=== PATIENT | male | born 1975 | race Caucasian/White ===

== ENCOUNTER 2021-03-22 18:38 | Emergency (ER) | payer SELFPAY ==
--- NOTE | 2021-03-22 21:14 | RAD REPORT ---
EXAM DESCRIPTION: RAD - Chest Pa And Lat (2 Views) - 03/22/2021 9:05 pm CLINICAL HISTORY: Chest pain;Cough Chest pain. COMPARISON: CHEST SINGLE VIEW dated 10/27/2010 FINDINGS: Hyperexpanded lung roe are seen with mild interstitial prominence bilaterally likely re presenting a viral infection. The heart is normal in size. No displaced fractures.
[2021-03-22 22:22] LABS: Absolute Lymphocytes (CBC) 0.8 K/uL (0.7-4.9); Basophils % 0.2 % (0-1.3); Lymphocytes % 16.1 % (15.3-44.8); MPV 9.9 fL (7.6-11.3); RBC Red Blood Cell Count 3.88 M/uL (4.33-5.43)
[2021-03-22] MEDS ORDERED: BENZONATATE 100 MG CAP PO ONE (22:22)
[2021-03-22] MEDS ORDERED: IBUPROFEN 200 MG TAB PO ONE (22:22)
[2021-03-22 23:15] LABS: ALT/SGPT 23 U/L (12-78); AST/SGOT 42 U/L (15-37); Albumin 2.5 g/dL (3.4-5.0); Alkaline Phosphatase 64 U/L (45-117); BUN Blood Urea Nitrogen 17 mg/dL (7-18); Bicarbonate 26 mmol/L (21-32); Bilirubin Direct 0.2 mg/dL (0-0.2); Bilirubin Total 0.5 mg/dL (0.2-1.0); Ferritin 712.8 ng/mL (26-388); Glucose Level 214 mg/dL (74-106); Magnesium 2.1 mg/dL (1.8-2.4); NT PRO-BNP 114 pg/mL (<125); Potassium 4.6 mmol/L (3.5-5.1); Protein, Total 6.3 g/dL (6.4-8.2); Sodium Level 133 mmol/L (136-145); Troponin (Emerg Dept Use Only) < 0.02 ng/mL (0.0-0.045)
[2021-03-22 23:21] LABS: Protime INR 0.87
[2021-03-23] MEDS ORDERED: METHYLPREDNISOLONE 40 MG INJ ONE
[2021-03-23] MEDS ORDERED: NA CHLORIDE 0.9% 1,000 ML ONE ×2 (00:01→00:03)
[2021-03-23 01:51] LABS: Potassium 4.6 mmol/L (3.5-5.1)
--- NOTE | 2021-03-23 02:00 | ER ---
Nurse's Notes [facility] Name: Gualberto Burgos Age: 45 yrs Sex: Male : 1975 Arrival Date: 03/22/2021 Time: 18:41 Bed 20 Private MD: Diagnosis: Pneumonia due to SARS-associated coronavirus Presentation: 03/22 18:48 Chief complaint: Patient states: i have been sick for 2 weeks with fever chills. i tw2 tested POSITIVE Saturday night for COVID. i took a test someone brought me. the chest pain got worse as i was coughing and stuff. 18:48 Acuity: MARTINA 3 tw2 18:48 Coronavirus screen: Client presents with at least one sign or symptom that may indicate tw2 coronavirus-19. Standard/surgical mask placed on the client. Provider contacted for isolation considerations. Client reports previous positive COVID test result. Ebola Screen: Patient denies travel to an Ebola-affected area in the 21 days before illness onset. Initial Sepsis Screen: Does the patient meet any 2 criteria? HR > 90 bpm. No. Patient's initial sepsis screen is negative. Does the patient have a suspected source of infection? No. Patient's initial sepsis screen is negative. Risk Assessment: Do you want to hurt yourself or someone else? Patient reports no desire to harm self or others. Onset of symptoms was March 22, 2021. 18:48 Method Of Arrival: Ambulatory tw2 Triage Assessment: 18:48 General: Appears in no apparent distress. Behavior is cooperative, anxious. Pain: tw2 Complains of pain in chest. Historical: - Allergies: 18:50 No Known Allergies; tw2 - Home Meds: 18:50 Novolin 70/30 InnoLet Insulin 100 unit/mL (70-30) Sub-Q inpn [Active]; ivermectin 3 mg tw2 oral tab [Active]; - PMHx: 18:50 Diabetes mellitus; tw2 - PSHx: 20:29 None; df1 - Immunization history:: Adult Immunizations. - Social history:: Smoking status: . Screenin:45 Abuse screen: Denies threats or abuse. Denies injuries from another. Nutritional kc4 screening: No deficits noted. On no prescribed diet Difficulty chewing/swallowing? No. Tuberculosis screening: No symptoms or risk factors identified. Never had TB. Possible symptoms: None Risk factors: None. Fall Risk None identified. No fall in past 12 months (0 pts). No secondary diagnosis (0 pts). No IV (0 pts). Ambulatory Aid- None/Bed Rest/Nurse Assist (0 pts). Gait- Normal/Bed Rest/Wheelchair (0 pts) Mental Status- Oriented to own ability (0 pts). Total Cody Fall Scale indicates No Risk (0-24 pts). Assessment: 22:07 General: Appears in no apparent distress. slender, well groomed, Behavior is calm, kc4 cooperative, appropriate for age, Reports chills for feeling ill for fatigue for >3 days, Denies fever. Pain: Complains of pain in generalized pain Pain currently is 5 out of 10 on a pain scale. at worst was 8 out of 10 on a pain scale. level that patient reports is acceptable is 2 out of 10 on a pain scale. Quality of pain is described as crampy, Pain began 2-3 days ago. Is continuous, Alleviated by medications. Neuro: No deficits noted. Cardiovascular: No deficits noted. Heart tones present Capillary refill < 3 seconds Patient's skin is warm and dry. Pulses are all present. Rhythm is sinus rhythm. Respiratory: No deficits noted. Respiratory: No deficits noted. GI: No deficits noted. No signs and/or symptoms were reported involving the gastrointestinal system. : No deficits noted. No signs and/or symptoms were reported regarding the genitourinary system. EENT: No deficits noted. No signs and/or symptoms were reported regarding the EENT system. Derm: No deficits noted. No signs and/or symptoms reported regarding the dermatologic system. Musculoskeletal: Reports weakness in generalized. Vital Signs: 18:48 BP 121 / 76; Pulse 91; Resp 17; Temp 99.5(TE); Pulse Ox 97% on R/A; Weight 79.38 kg; tw2 Height 6 ft. 0 in. (182.88 cm); Pain 6/10; 21:45 BP 129 / 86; Pulse 72; Resp 18; Temp 98.9(O); Pulse Ox 100% on R/A; Pain 0/10; kc4 22:45 BP 121 / 93; Pulse 60; Resp 20; Temp 98.4(O); Pulse Ox 99% on R/A; Pain 2/10; kc4 23:43 BP 116 / 78; Pulse 64; Resp 20; Temp 98.8(O); Pulse Ox 99% on R/A; Pain 0/10; kc4 03/23 01:22 BP 135 / 76; Pulse 70; Resp 18; Temp 98.9(O); Pulse Ox 97% on R/A; Pain 0/10; kc4 02:15 BP 130 / 77; Pulse 72; Resp 20; Temp 98.8(O); Pulse Ox 98% on R/A; Pain 0/10; kc4 03/22 18:48 Body Mass Index 23.73 (79.38 kg, 182.88 cm) tw2 03/22 21:45 pt calm and comfortable sitting in bed. pt requested for blood sugar to be check. bs [id number] [place] Coma Score: 21:45 Eye Response: spontaneous(4). Verbal Response: oriented(5). Motor Response: obeys kc4 commands(6). Total: 15. ED Course: 18:41 Patient arrived in ED. ds1 18:49 Triage completed. tw2 18:50 Arm band placed on. tw2 18:51 EKG completed in triage. Results shown to MD. tw2 20:29 Francisco Gates PA is PHCP. cp 20:29 Dagoberto Moura MD is Attending Physician. cp 21:05 Chest Pa And Lat (2 Views) XRAY In Process Unspecified. EDMS 21:32 Marcie Wiggins is Primary Nurse. kc4 21:45 Patient has correct armband on for positive identification. Placed in gown. Bed in low kc4 position. Call light in reach. Side rails up X 1. 21:45 No provider procedures requiring assistance completed. Inserted saline lock: 18 gauge kc4 in right antecubital area, using aseptic technique. Blood collected. 21:51 CRP Sent. kc4 21:51 Ferritin Sent. kc4 21:51 D-Dimer Sent. kc4 21:51 Basic Metabolic Panel Sent. kc4 21:51 CBC with Diff Sent. kc4 21:51 LFT's Sent. kc4 21:51 Magnesium Sent. kc4 21:51 NT PRO-BNP Sent. kc4 21:51 PT-INR Sent. kc4 21:51 Troponin (emerg Dept Use Only) Sent. kc4 22:10 EKG done, by ED staff. cs9 03/23 01:21 BMP Sent. kc4 01:59 Brad Perdomo MD is Referral Physician. cp 02:15 IV discontinued, intact, bleeding controlled, No redness/swelling at site. Pressure kc4 dressing applied. Administered Medications: 03/22 22:02 Drug: Ibuprofen 800 mg Route: PO; kc4 22:10 Follow up: Response: No adverse reaction kc4 22:02 Drug: Tessalon Perle (benzonatate) 200 mg Route: PO; kc4 22:10 Follow up: Response: No adverse reaction kc4 23:35 Drug: NS 0.9% 1000 ml Route: IV; Rate: 1 bolus; Site: right antecubital; kc4 03/23 01:21 Follow up: Response: No adverse reaction; IV Status: Completed infusion kc4 03/22 23:35 Drug: SOLU-Medrol (methylPrednisoLONE) 80 mg Route: IVP; Site: right antecubital; kc4 03/23 01:21 Follow up: Response: No adverse reaction kc4 03/22 23:43 Drug: NS 0.9% 1000 ml Route: IV; Rate: 1 bolus; Site: right antecubital; kc4 03/23 01:21 Follow up: Response: No adverse reaction; IV Status: Completed infusion kc4 02:13 Drug: Zithromax (azithromycin) 500 mg Route: PO; kc4 02:16 Follow up: Response: No adverse reaction kc4 02:13 Drug: Aspirin Chewable Tablet 324 mg Route: PO; kc4 02:16 Follow up: Response: No adverse reaction kc4 Outcome: 02:00 Discharge ordered by MD. cp 02:16 Discharged to home ambulatory. kc4 02:16 Condition: stable 02:16 Discharge instructions given to patient, Instructed on discharge instructions, follow up and referral plans. medication usage, Demonstrated understanding of instructions, follow-up care, medications, Prescriptions given X 4. 02:17 Patient left the ED. kc4 Signatures: Dispatcher [employer] EDMS Uma Hamm ds1 Francisco Gates PA PA cp Wise, Tara, CHARISMA RN tw2 Marcie Wiggins kc4 Elisabeth Davis df1 Shae Licea cs9
--- NOTE | 2021-03-23 02:01 | EDPHYS ---
Physician Documentation [facility] Name: Gualberto Burgos Age: 45 yrs Sex: Male : 1975 Arrival Date: 03/22/2021 Time: 18:41 Bed 20 Private MD: ED Physician Dagoberto Mouar HPI: 03/22 20:35 This 45 yrs old Male presents to ER via Ambulatory with complaints of Chest cp Pain, Chills. 20:35 The patient or guardian reports chest pain that is located primarily in the anterior cp chest wall. 20:35 Onset: gradually, and became worse. The pain does not radiate. Associated signs and cp symptoms: Pertinent positives: cough, shortness of breath, Pertinent negatives: diaphoresis, lower extremity pain, lower extremity swelling, palpitations, syncope. The chest pain is described as aching. Patient reports cough, chills, body aches times 2 weeks. Recently tested positive for COVID-19 3 days ago. Historical: - Allergies: 18:50 No Known Allergies; tw2 - Home Meds: 18:50 Novolin 70/30 InnoLet Insulin 100 unit/mL (70-30) Sub-Q inpn [Active]; ivermectin 3 mg tw2 oral tab [Active]; - PMHx: 18:50 Diabetes mellitus; tw2 - PSHx: 20:29 None; df1 - Immunization history:: Adult Immunizations. - Social history:: Smoking status: . ROS: 20:38 Cardiovascular: Positive for chest pain, Negative for edema, palpitations. cp 20:38 Eyes: Negative for injury, pain, redness, and discharge. cp 20:38 Constitutional: Negative for body aches, chills, fever, poor PO intake. 20:38 ENT: Negative for ear pain, sore throat, difficulty swallowing, difficulty handling secretions. 20:38 Respiratory: Negative for cough, shortness of breath, wheezing. 20:38 Abdomen/GI: Negative for abdominal pain, nausea, vomiting, and diarrhea. 20:38 Back: Negative for pain at rest, pain with movement, radiated pain. 20:38 Neuro: Negative for altered mental status, headache, weakness. 20:38 All other systems are negative. Exam: 20:40 Constitutional: The patient appears in no acute distress, alert, awake, cp non-diaphoretic, non-toxic, well developed, well nourished. 20:40 Head/Face: Normocephalic, atraumatic. cp 20:40 Eyes: Periorbital structures: appear normal, Conjunctiva: normal, no exudate, no injection, Sclera: no appreciated abnormality, Lids and lashes: appear normal, bilaterally. 20:40 ENT: External ear(s): are unremarkable, Nose: is normal, Mouth: Lips: moist, Oral mucosa: moist, Posterior pharynx: Airway: no evidence of obstruction, patent. 20:40 Neck: ROM/movement: is normal, is supple, without pain, no range of motions limitations, no nuchal rigidity. 20:40 Chest/axilla: Inspection: normal, Palpation: is normal, no crepitus, no tenderness. 20:40 Cardiovascular: Rate: normal, Rhythm: regular, Edema: is not appreciated, JVD: is not appreciated. 20:40 ECG was reviewed by the Attending Physician. 20:40 Respiratory: the patient does not display signs of respiratory distress, Respirations: normal, no use of accessory muscles, no retractions, labored breathing, is not present, Breath sounds: are clear throughout, no decreased breath sounds, no stridor, no wheezing. 20:40 Abdomen/GI: Inspection: abdomen appears normal, Palpation: abdomen is soft and non-tender, in all quadrants. 20:40 Back: pain, is absent, ROM is normal. 20:40 Neuro: Orientation: to person, place \T\ time. Mentation: is normal, Motor: moves all fours, strength is normal. 22:10 ECG was reviewed by the Attending Physician. cp Vital Signs: 18:48 BP 121 / 76; Pulse 91; Resp 17; Temp 99.5(TE); Pulse Ox 97% on R/A; Weight 79.38 kg; tw2 Height 6 ft. 0 in. (182.88 cm); Pain 6/10; 21:45 BP 129 / 86; Pulse 72; Resp 18; Temp 98.9(O); Pulse Ox 100% on R/A; Pain 0/10; kc4 22:45 BP 121 / 93; Pulse 60; Resp 20; Temp 98.4(O); Pulse Ox 99% on R/A; Pain 2/10; kc4 23:43 BP 116 / 78; Pulse 64; Resp 20; Temp 98.8(O); Pulse Ox 99% on R/A; Pain 0/10; kc4 03/23 01:22 BP 135 / 76; Pulse 70; Resp 18; Temp 98.9(O); Pulse Ox 97% on R/A; Pain 0/10; kc4 02:15 BP 130 / 77; Pulse 72; Resp 20; Temp 98.8(O); Pulse Ox 98% on R/A; Pain 0/10; kc4 03/22 18:48 Body Mass Index 23.73 (79.38 kg, 182.88 cm) tw2 03/22 21:45 pt calm and comfortable sitting in bed. pt requested for blood sugar to be check. bs [id number] [place] Coma Score: 21:45 Eye Response: spontaneous(4). Verbal Response: oriented(5). Motor Response: obeys kc4 commands(6). Total: 15. MDM: 21:22 Patient medically screened. cp 21:30 Differential diagnosis: acute myocardial infarction, acute pericarditis, cp costochondritis, pleurisy, pneumonia, pneumothorax, pulmonary embolus. 03/23 02:00 Data reviewed: vital signs, nurses notes, lab test result(s), EKG, radiologic studies, cp plain films, I have discussed the patient's presentation/case with the attending Emergency Department Physician; and as a result, I will discharge patient. 02:00 The patient was given aspirin in the Emergency Department. Test interpretation: by ED cp physician or midlevel provider: ECG, plain radiologic studies. Counseling: I had a detailed discussion with the patient and/or guardian regarding: the historical points, exam findings, and any diagnostic results supporting the discharge/admit diagnosis, lab results, radiology results, the need for outpatient follow up, a family practitioner, to return to the emergency department if symptoms worsen or persist or if there are any questions or concerns that arise at home. Response to treatment: the patient's symptoms have mildly improved after treatment, and as a result, I will discharge patient. ED course: VSS. Patient reports symptoms improved. Patient appears non-toxic and no signs of respiratory distress. Will discharge to home for continued monitoring. 03/22 20:30 Order name: Basic Metabolic Panel; Complete Time: 23:23 cp 03/22 23:23 Interpretation: Normal except: NA 133; GLUC 214; CRE 1.57; GFR 48; CA 8.2. cp 03/22 20:30 Order name: CBC with Diff; Complete Time: 23:23 cp 03/22 23:24 Interpretation: Normal except: RBC 3.88; HGB 11.6; HCT 34.0; PLT 128; RUSLAN% 76.3. cp 03/22 20:30 Order name: LFT's; Complete Time: 23:23 cp 03/22 23:53 Interpretation: Normal except: AST 42; TP 6.3; ALB 2.5; GLOB 3.8; A/G 0.7. cp 03/22 20:30 Order name: Magnesium; Complete Time: 23:23 cp 03/22 20:30 Order name: NT PRO-BNP; Complete Time: 23:23 cp 03/22 20:30 Order name: PT-INR; Complete Time: 23:23 cp 03/22 20:28 Order name: Chest Pa And Lat (2 Views) XRAY; Complete Time: 21:43 df1 03/22 21:43 Interpretation: Report reviewed. 03/22 20:30 Order name: Troponin (emerg Dept Use Only); Complete Time: 23:23 cp 03/22 20:30 Order name: D-Dimer; Complete Time: 23:23 cp 03/22 20:30 Order name: Ferritin; Complete Time: 23:23 cp 03/22 20:30 Order name: CRP; Complete Time: 23:23 cp 03/22 22:04 Order name: Glucose, Ancillary Testing; Complete Time: 23:23 EDMS 03/23 00:53 Order name: BMP; Complete Time: 01:52 cp 03/23 01:53 Interpretation: Normal except: GLUC 284; BUN 19; CRE 1.66; GFR 45; CA 7.3. cp 03/22 20:30 Order name: EKG; Complete Time: 20:31 cp 03/22 20:30 Order name: Cardiac monitoring; Complete Time: 22:02 cp 03/22 20:30 Order name: EKG - Nurse/Tech; Complete Time: 22:02 cp 03/22 20:30 Order name: IV Saline Lock; Complete Time: 21:51 cp 03/22 20:30 Order name: Labs collected and sent; Complete Time: 21:51 cp 03/22 20:30 Order name: O2 Per Protocol; Complete Time: 21:51 cp 03/22 20:30 Order name: O2 Sat Monitoring; Complete Time: 21:51 cp EC/27 20:40 Rate is 85 beats/min. Rhythm is regular. ME interval is normal. QRS interval is normal. cp QT interval is normal. T waves are Inverted in leads aVL, aVR, V2. Interpreted by me. Reviewed by me. 22:10 Rate is 63 beats/min. Rhythm is regular. ME interval is normal. QRS interval is normal. cp QT interval is normal. T waves are Inverted in lead aVR. Interpreted by me. Reviewed by me. Administered Medications: 22:02 Drug: Ibuprofen 800 mg Route: PO; kc4 22:10 Follow up: Response: No adverse reaction kc4 22:02 Drug: Tessalon Perle (benzonatate) 200 mg Route: PO; kc4 22:10 Follow up: Response: No adverse reaction kc4 23:35 Drug: NS 0.9% 1000 ml Route: IV; Rate: 1 bolus; Site: right antecubital; 4 03/23 01:21 Follow up: Response: No adverse reaction; IV Status: Completed infusion 4 03/22 23:35 Drug: SOLU-Medrol (methylPrednisoLONE) 80 mg Route: IVP; Site: right antecubital; 4 03/23 01:21 Follow up: Response: No adverse reaction 4 03/22 23:43 Drug: NS 0.9% 1000 ml Route: IV; Rate: 1 bolus; Site: right antecubital; 4 03/23 01:21 Follow up: Response: No adverse reaction; IV Status: Completed infusion kc4 02:13 Drug: Zithromax (azithromycin) 500 mg Route: PO; kc4 02:16 Follow up: Response: No adverse reaction kc4 02:13 Drug: Aspirin Chewable Tablet 324 mg Route: PO; kc4 02:16 Follow up: Response: No adverse reaction [facility] Disposition: 06:20 Co-signature as Attending Physician, Dagoberto Moura MD. pkl Disposition Summary: 03/23/21 02:00 Discharge Ordered Location: Home cp Problem: new cp Symptoms: have improved cp Condition: Stable cp Diagnosis - Pneumonia due to SARS-associated coronavirus cp Followup: cp - With: Brad Perdomo MD - When: 2 - 3 days - Reason: Recheck today's complaints Discharge Instructions: - Discharge Summary Sheet cp - Aspirin and Your Heart cp - COVID-19 cp - COVID-19 Frequently Asked Questions cp - 10 Things You Can Do to Manage Your COVID-19 Symptoms at Home - [facility] [place] cp Forms: - Medication Reconciliation Form cp - Thank You Letter cp - Antibiotic Education cp - Prescription Opioid Use cp Prescriptions: - albuterol sulfate 90 mcg/actuation Inhalation HFA aerosol inhaler - inhale 1 puff by INHALATION route every 4-6 hours; 1 Inhaler; Refills: 0, cp Product Selection Permitted - Tessalon Perles 100 mg Oral Capsule - take 2 capsule by ORAL route every 8 hours As needed; 30 capsule; Refills: 0, cp Product Selection Permitted - Zithromax Z-Rafat 250 mg Oral Tablet - take 1 tablet by ORAL route as directed for 5 days Day 1 - take two (2) tablets cp one time. Day 2, 3, 4 , 5 take one (1) tablet once daily.; 6 tablet; Refills: 0, Product Selection Permitted - Prednisone 20 mg Oral Tablet - take 2 tablets by ORAL route once daily for 5 days; 10 tablet; Refills: 0, cp Product Selection Permitted Signatures: Dispatcher [employer] EDDagoberto Harrison MD MD pkl Page, Corey, PA PA cp Rosi Graham RN RN tw2 Marcie Wiggins kc4 Elisabeth Davis df1 Corrections: (The following items were deleted from the chart) 01:53 01:53 Normal except: GLUC 284; BUN 19; CRE 1.66; GFR 45. cp cp
[2021-03-23] MEDS ORDERED: AZITHROMYCIN 250 MG TAB ONE (02:29)
[2021-03-23] MEDS ORDERED: ASPIRIN 81 MG CHEWABLE TABLET ONE (02:29)
[2021-03-23 02:33] VITALS: BP 130/77; TEMP 98.8; O2SAT 98
--- NOTE | 2021-03-25 14:26 | EKG ---
Test Date: 2021-03-22 Test Time: 18:45:35 Library Science Professor: BERTA MEASUREMENT RESULTS: Intervals: Rate: 85 IN: 140 QRSD: 88 QT: 358 QTc: 426 [place]: P: 68 IN: 140 QRS: 76 T: 65 INTERPRETIVE STATEMENTS: Normal sinus rhythm Right atrial enlargement Septal infarct, age undetermined Abnormal ECG Compared to ECG 03/20/2013 07:02:53 Atrial abnormality now present Myocardial infarct finding now present Electronically Signed On 03-25-21 14:22:09 CDT by Kian Escamilla
== END 2021-03-23 02:17 | disposition home or self-care (01) ==
LOC: ER 18:38
DX: U07.1 COVID-19 (principal); J12.82 Pneumonia due to coronavirus disease 2019; E11.9 Type 2 diabetes mellitus without complications; Z79.4 Long term (current) use of insulin
CPT/HCPCS: 36415; 71046; 80048; 80076; 82565; 82728; 82947; 83735; 83880; 84484; 85025; 85379; 85610; 86140; 93005; 96361; 96374; 99284

== ENCOUNTER 2022-11-15 18:02 | Inpatient (IN) | payer SELFPAY ==
[2022-11-15] MEDS ORDERED: Ringers Lactate 1,000 ML IV ONE (18:55)
[2022-11-15] MEDS ORDERED: DIPHENHYDRAMINE 50 MG/ML VIAL ONE (18:55)
[2022-11-15] MEDS ORDERED: NA CHLORIDE 0.9% 50 ML ONE (18:55)
[2022-11-15] MEDS ORDERED: METOCLOPRAMIDE 10 MG/2mL INJ ONE (18:55)
--- NOTE | 2022-11-15 19:09 | RAD REPORT ---
EXAM DESCRIPTION: RAD - Chest Single View - 11/15/2022 6:54 pm CLINICAL HISTORY: chills Chest pain. COMPARISON: Chest Pa And Lat (2 Views) dated 03/22/2021; CHEST SINGLE VIEW dated 10/27/2010 FINDINGS: Portable technique limits examination quality. The lungs are grossly clear. The heart is normal in size. No displaced fractures. IMPRESSION: No acute intrathoracic process suspected.
[2022-11-15 19:15] LABS: Specific Gravity 1.019 (1.005-1.030); Urine Bacteria None Seen /HPF (<20); Urine Bilirubin NEGATIVE (Negative); Urine Blood 1+ (Negative); Urine Clarity Clear (Clear); Urine Color Colorless (Yellow); Urine Glucose 4+ (Over) (Negative); Urine Protein 1+ (Negative); Urine RBC <5 /HPF (None Seen); Urine Urobilinogen Normal (Normal); Urine pH 5.5 (5.0-7.0)
[2022-11-15 19:33] LABS: Albumin 3.4 g/dL (3.4-5.0); Bilirubin Total 0.8 mg/dL (0.2-1.0); Potassium 4.6 mEq/L (3.5-5.1); Protein, Total 6.8 g/dL (6.4-8.2)
[2022-11-15 19:39] LABS: Absolute Lymphocytes (CBC) 0.7 K/uL (0.7-4.9); Hematocrit 38.6 % (39.6-49.0); Lymphocytes % 9.5 % (15.3-44.8); MPV 11.3 fL (7.6-11.3); RBC Red Blood Cell Count 4.34 M/uL (4.33-5.43)
[2022-11-15] MEDS ORDERED: NA CHLORIDE 0.9% 100 ML ONE (19:54)
[2022-11-15] MEDS ORDERED: NA CHLORIDE 0.9% 2,000 ML ONE (19:54)
[2022-11-15] MEDS ORDERED: INSULIN -REGULAR HUMAN 50 UNIT/0.5 ML ML ONE (19:54)
--- NOTE | 2022-11-15 20:04 | ER ---
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 Coronavirus screen: Vaccine status: Patient reports being unvaccinated. Ebola Screen: No symptoms or risks identified at this time. Initial Sepsis Screen: Does the patient meet any 2 criteria? No. Patient's initial sepsis screen is negative. Does the patient have a suspected source of infection? No. Patient's initial sepsis screen is negative. Risk Assessment: Do you want to hurt yourself or someone else? Patient reports no desire to harm self or others. Onset of symptoms was November 15, 2022. 18:35 Method Of Arrival: EMS: [facility] 18:35 Acuity: MARTINA 3 ph Triage Assessment: 18:40 General: Appears in no apparent distress. uncomfortable, Behavior is cooperative, ph appropriate for age, anxious. Pain: Denies pain. Neuro: Level of Consciousness is awake, obeys commands, lethargic, Oriented to person, place, time, situation. Cardiovascular: Capillary refill < 3 seconds in bilateral fingers Patient's skin is warm and dry. Respiratory: Airway is patent Respiratory pattern is tachypnea. GI: Reports nausea, vomiting. Derm: Skin is pink, warm \T\ dry. Historical: - Allergies: 18:38 No Known Allergies; ph - Home Meds: 18:38 ivermectin 3 mg Oral tab [Active]; Novolin 70/30 InnoLet Insulin 100 unit/mL (70-30) ph Sub-Q inpn [Active]; - PMHx: 18:38 diabetes mellitus; ph - Immunization history:: Adult Immunizations unknown. - Social history:: Smoking status: Patient reports the use of cigarette tobacco products, denies chronic smoking, but will smoke occasionally, Patient uses street drugs, marijuana. - Family history:: not pertinent. Screenin:41 [facility] ED Fall Risk Assessment (Adult) History of falling in the last 3 months, ph including since admission No falls in past 3 months (0 pts) Confusion or Disorientation No (0 pts) Intoxicated or Sedated No (0 pts) Impaired Gait No (0 pts) Mobility Assist Device Used No (0 pt) Altered Elimination No (0 pt) Score/Fall Risk Level 0 - 2 = Low Risk Oriented to surroundings, Maintained a safe environment. Abuse screen: Denies threats or abuse. Denies injuries from another. Nutritional screening: No deficits noted. Tuberculosis screening: No symptoms or risk factors identified. Assessment: 18:41 Reassessment: See triage assessment. GI: Pt is actively vomiting undigested food. ld1 19:50 Reassessment: Patient and/or family updated on plan of care and expected duration. Pain kl level reassessed. Patient states feeling better. Patient states symptoms have improved. Vital Signs: 18:35 BP 157 / 104; Pulse 69; Resp 26; Temp 99; Pulse Ox 100% on R/A; Weight 83.91 kg; Height ph 6 ft. 0 in. ; 18:41 BP 149 / 99; Pulse 52; Resp 18; Pulse Ox 99% on R/A; ld1 21:57 BP 155 / 83; Pulse 82; Resp 20; Pulse Ox 99% on R/A; kl 22:40 BP 134 / 81; Pulse 61; Resp 22; Pulse Ox 98% on R/A; kl 18:35 Body Mass Index 25.09 (83.91 kg, 182.88 cm) ph ED Course: 18:16 Patient arrived in ED. ss 18:21 Wil Sharif MD is Attending Physician. rt 18:28 Griselda Ibarra, CHARISMA is Primary Nurse. ph 18:38 Triage completed. ph 18:40 Arm band placed on Patient placed in an exam room, on a stretcher. ph 18:41 Patient has correct armband on for positive identification. Bed in low position. Call ph light in reach. Side rails up X2. Client placed on continuous cardiac and pulse oximetry monitoring. NIBP monitoring applied. Door closed. Noise minimized. Warm blanket given. 18:41 Maintain EMS IV. Dressing intact. Good blood return noted. Site clean \T\ dry. Gauge \T\ ld 1 site: 18G LAC. 18:56 Chest Single View XRAY In Process Unspecified. EDMS 19:26 Primary Nurse role handed off by Griselda Ibarra RN rv1 19:45 Sagar Felton, CHARISMA is Primary Nurse. rv 20:03 Jacob Tan MD is Hospitalizing Provider. rt 22:40 No provider procedures requiring assistance completed. Patient admitted, IV remains in kl place. Administered Medications: 09:49 Drug: metoCLOPramide IVP 10 mg Route: IVP; Site: left antecubital; kl 21:56 Follow up: Response: No adverse reaction kl 19:38 CANCELLED (Other Intervention Used): Lactated Ringers Solution IV 2000 ml IV at ml [id number] 19:45 Drug: Insulin Drip - (Insulin Regular Human IVP 100 units, NS 0.9% IV 100 ml) kl {Co-Signature: rv (Sagar Felton RN).} {Note: initiated at 7 units hr.} Route: IV; Rate: calculated rate; Site: left antecubital; 21:57 Follow up: Response: Blood sugar is lowered kl 19:49 Drug: diphenhydrAMINE IVP 25 mg Route: IVP; Site: left antecubital; kl 21:56 Follow up: Response: No adverse reaction kl 19:54 Drug: NS 0.9% IV 1000 ml Route: IV; Rate: 1000 ml; Site: left antecubital; kl 21:00 Follow up: IV Status: Completed infusion; IV Intake: 1000ml kl 20:24 Drug: Promethazine IVP 12.5 mg Route: IVP; Site: left antecubital; kl 21:55 Follow up: Response: No adverse reaction; Marked relief of symptoms kl 21:15 Drug: NS 0.9% IV 1000 ml Route: IV; Rate: 1000 ml; Site: left antecubital; kl Medication: 18:41 VIS not applicable for this client. ph Intake: 21:00 IV: 1000ml; Total: 1000ml. kl 22:41 IV: 3000ml (IV Fluid); Total: 4000ml. kl Output: 22:41 Urine: 1100ml (Voided); Total: 1100ml. kl Outcome: 20:04 Decision to Hospitalize by Provider. rt 22:41 Admitted to ICU via stretcher, room 3, with chart, Report called to Wil ZAFAR kl 22:41 Condition: improved 23:42 Patient left the ED. kl Signatures: Dispatcher [employer] EDJennifer Barber, RN RN Carmella Mohan, RN RN ss Griselda Ibarra RN RN Sagar Felton RN RN rv Seth, CHARISMA Rouse RN ld1 Wil Sharif MD MD rt Villegas, Rebecca rv1 Arie Linda TEACHER SPECIALIST-[facility]1 Sagar Felton RN rv
--- NOTE | 2022-11-15 20:05 | EDPHYS ---
Physician Documentation [facility] Name: Gualberto Burgos Age: 47 yrs Sex: Male : 1975 Arrival Date: 11/15/2022 Time: 18:02 Bed 8 Private MD: ED Physician Wil Sharif HPI: 11/15 21:48 This 47 yrs old Male presents to ER via EMS with complaints of Heat Exposure. rt 21:48 Patient with history of insulin-dependent diabetes presents to the ED with rt hyperglycemia, nausea, vomiting for the past several days. Reports abdominal pain only when he retches, not otherwise. Is unable to tolerate p.o. Denies other acute complaints at this time. Symptoms are moderate severity, no other aggravating alleviating factors.. Historical: - Allergies: 18:38 No Known Allergies; ph - Home Meds: 18:38 ivermectin 3 mg Oral tab [Active]; Novolin 70/30 InnoLet Insulin 100 unit/mL (70-30) ph Sub-Q inpn [Active]; - PMHx: 18:38 diabetes mellitus; ph - Immunization history:: Adult Immunizations unknown. - Social history:: Smoking status: Patient reports the use of cigarette tobacco products, denies chronic smoking, but will smoke occasionally, Patient uses street drugs, marijuana. - Family history:: not pertinent. ROS: 21:48 Constitutional: Negative for fever, chills, and weight loss, Cardiovascular: Negative rt for chest pain, palpitations, and edema, Respiratory: Negative for shortness of breath, cough, wheezing, and pleuritic chest pain, MS/Extremity: Negative for injury and deformity, Skin: Negative for injury, rash, and discoloration, Neuro: Negative for headache, weakness, numbness, tingling, and seizure, Psych: Negative for depression, anxiety, suicide ideation, homicidal ideation, and hallucinations. 21:48 Abdomen/GI: Positive for nausea and vomiting, Negative for diarrhea. Exam: 21:48 ENT: Dry mucous membranes. rt 21:48 ECG was reviewed by the Attending Physician. Vital Signs: 18:35 BP 157 / 104; Pulse 69; Resp 26; Temp 99; Pulse Ox 100% on R/A; Weight 83.91 kg; Height ph 6 ft. 0 in. ; 18:41 BP 149 / 99; Pulse 52; Resp 18; Pulse Ox 99% on R/A; ld1 21:57 BP 155 / 83; Pulse 82; Resp 20; Pulse Ox 99% on R/A; kl 22:40 BP 134 / 81; Pulse 61; Resp 22; Pulse Ox 98% on R/A; kl 18:35 Body Mass Index 25.09 (83.91 kg, 182.88 cm) ph MDM: 18:21 Patient medically screened. rt 21:48 Differential Diagnosis DKA, gastroparesis, hyperglycemia, acute renal failure. Data rt reviewed: vital signs, nurses notes, lab test result(s), EKG, radiologic studies. Consideration of Admission/Observation Patient was admitted/placed on observation. Management of patient was discussed with the following: Hospitalist: Agrees to admit. I considered the following discharge prescriptions or medication management in the emergency department Medications were administered in the Emergency Department. See MAR. Care significantly affected by the following chronic conditions: Diabetes. Counseling: I had a detailed discussion with the patient and/or guardian regarding: the historical points, exam findings, and any diagnostic results supporting the discharge/admit diagnosis, lab results, radiology results, the need for further work-up and treatment in the hospital. Response to treatment: the patient's symptoms have markedly improved after treatment. 11/15 18:32 Order name: CBC with Diff; Complete Time: 19:42 rt 11/15 18:32 Order name: CMP; Complete Time: 19:36 rt 11/15 18:32 Order name: Lactate w/ 2H reflex if indic.; Complete Time: 20:38 rt 11/15 18:32 Order name: Acetone, Serum; Complete Time: 19:35 rt 11/15 18:32 Order name: ABG: VBG ok; Complete Time: 20:38 rt 11/15 18:32 Order name: UAM; Complete Time: 19:35 rt 11/15 18:32 Order name: CPK; Complete Time: 19:36 rt 11/15 22:42 Order name: Glucose, Ancillary Testing; Complete Time: 22:56 EDMS 11/15 23:41 Order name: Glucose, Ancillary Testing EDMS 11/15 18:32 Order name: Chest Single View XRAY; Complete Time: 19:35 rt 11/15 20:13 Order name: CT Abd/Pelvis - Without Contrast la1 11/15 20:56 Order name: CT; Complete Time: 21:47 EDMS 11/15 18:32 Order name: EKG; Complete Time: 18:34 rt 11/15 18:32 Order name: EKG - Nurse/Tech; Complete Time: 19:31 rt EC:48 Rate is 64 beats/min. Rhythm is regular, Normal Sinus Rhythm with No ectopy. QRS [place] rt is Normal. ID interval is normal. QRS interval is normal. QT interval is normal. No Q waves. T waves are Normal. No ST changes noted. Clinical impression: Normal ECG. Interpreted by me. Administered Medications: 09:49 Drug: metoCLOPramide IVP 10 mg Route: IVP; Site: left antecubital; kl 21:56 Follow up: Response: No adverse reaction kl 19:38 CANCELLED (Other Intervention Used): Lactated Ringers Solution IV 2000 ml IV at ml [id number] 19:45 Drug: Insulin Drip - (Insulin Regular Human IVP 100 units, NS 0.9% IV 100 ml) kl {Co-Signature: rv (Sagar Felton RN).} {Note: initiated at 7 units hr.} Route: IV; Rate: calculated rate; Site: left antecubital; 21:57 Follow up: Response: Blood sugar is lowered kl 19:49 Drug: diphenhydrAMINE IVP 25 mg Route: IVP; Site: left antecubital; kl 21:56 Follow up: Response: No adverse reaction kl 19:54 Drug: NS 0.9% IV 1000 ml Route: IV; Rate: 1000 ml; Site: left antecubital; kl 21:00 Follow up: IV Status: Completed infusion; IV Intake: 1000ml kl 20:24 Drug: Promethazine IVP 12.5 mg Route: IVP; Site: left antecubital; kl 21:55 Follow up: Response: No adverse reaction; Marked relief of symptoms kl 21:15 Drug: NS 0.9% IV 1000 ml Route: IV; Rate: 1000 ml; Site: left antecubital; kl Disposition Summary: 11/15/22 20:04 Hospitalization Ordered Hospitalization Status: Inpatient Admission rt Provider: Jacob Tan rt Location: Intensive Care Unit rt Condition: Fair rt Problem: an acute exacerbation rt Symptoms: have improved rt Bed/Room Type: Standard rt Room Assignment: 3-(11/15/22 22:02) cg Diagnosis - Hyperglycemia, unspecified rt - Acute kidney failure, unspecified rt Forms: - Medication Reconciliation Form rt - SBAR form rt Critical care time excluding procedures: 21:48 Critical care time: Bedside Care: 30 minutes, Consultation: 5 minutes. Total time: 35 rt minutes Signatures: Dispatcher [employer] EDJennifer Barber RN RN Arie Linda, RAILROAD BRAKE REPAIRER-C RAILROAD BRAKE REPAIRER-[facility] Griselda Ibarra RN RN Mouna De Los Santos RN RN Wil Sharif MD MD rt Sagar Felton RN rv Corrections: (The following items were deleted from the chart) 19:38 18:32 Lactated Ringers Solution IV 2000 ml IV at ml bolus ordered. rt la1 19:38 19:38 Lactated Ringers Solution IV 2000 ml IV at ml bolus ordered. la1 la1 22:02 20:04 rt cg
[2022-11-15 20:22] LABS: Arterial Blood Carboxyhemoglob 1.4 % (0-1.5); Blood Gas Oxyhemoglobin 66.9 % (94-97)
[2022-11-15] MEDS ORDERED: PROMETHAZINE INJ 25 MG/ML AMP ONE (20:30)
--- NOTE | 2022-11-15 20:56 | RAD REPORT ---
EXAM DESCRIPTION: CT - Abdomen Pelvis Wo Contrast - 11/15/2022 8:48 pm CLINICAL HISTORY: Abdominal pain. acute renal failure, intractable vomiting COMPARISON: No comparisons TECHNIQUE: CT imaging of the abdomen and pelvis was performed without contrast. Solid organ, bowel a nd vascular assessment is limited due to lack of IV and oral contrast. All CT scans are performed using dose optimization technique as appropriate and may include automated exposure control or mA/KV adjustment according to patient size. FINDINGS: The lower lung roe are clear. The liver, spleen, pancreas, adrenal glands and kidneys are within normal limits for a limited non-co ntrast examination. No bowel obstruction, free air, free fluid or abscess. Moderate stool throughout the colon. The appen chaim is not identified as a discrete structure, however, no secondary findings of appendicitis are levi ntified. The osseous structures are within normal limits.Mild lumbosacral degenerative changes. IMPRESSION: No acute intra-abdominal or pelvic findings. Moderate retained stool throughout the colo n. A limited non-contrast examination was performed as detailed.
--- NOTE | 2022-11-15 21:52 | P.HP ---
Certification for Inpatient Patient admitted to: Inpatient With expected LOS: >2 Midnights Patient will require the following post-hospital care: None Practitioner: I am a practitioner with admitting privileges, knowledge of patient current condition, hospital course, and medical plan of care. Services: Services provided to patient in accordance with Admission requirements found in Title 42 Section 412.3 of the Code of Federal Regulations Patient History Date of Service: 11/15/22 Reason for admission: JONAS History of Present Illness: 47-year-old male with history of insulin-dependent diabetes presents to the emergency department with chief complaint of nausea, vomiting, weakness, hyperglycemia. 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 He continues to work out in the hot sun, he reports he does take his insulin 20 units of 70/30 insulin twice daily. He is unsure when his last A1c was not on any other medications that he reports. He was evaluated in the emergency department his labs are significant for sodium 123 chloride 90 creatinine 3.06 GFR 25 glucose 770 lactic acid 1.5 CPK 314 small serum ketones present 1+ ketones in urine ABG shows a pH of 7.41 CT abdomen pelvis was performed which was negative for acute findings. He received 2 L normal saline bolus as well as insulin drip which was initiated in the emergency department for significant hyperglycemia. He will be admitted for further management of acute kidney injury, hyperglycemia. 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 moist/pink, EOMI, Sclerae nonicteric Neck: Supple, 2+ carotid pulse no bruit, No LAD, Without JVD or thyroid abnormality Respiratory: Clear to auscultation bilaterally, Normal air movement Cardiovascular: No edema, Regular rate/rhythm, Normal S1 S2 Capillary refill: <2 Seconds Gastrointestinal: Normal bowel sounds, No tenderness Musculoskeletal: No tenderness Integumentary: No rashes Neurological: Normal speech, Normal strength at 5/5 x4 extr, Normal tone, Normal affect - Studies Laboratory Data (last 24 hrs) 11/15/22 19:00: Sodium 123 L, Potassium 4.6, BUN 46 H, Creatinine 3.06 H, Glucose 770 H*, Total Bilirubin 0.8, AST 19, ALT 23, Alkaline Phosphatase 106 11/15/22 19:00: WBC 7.30, Hgb 13.0 L, Hct 38.6 L, Plt Count 158 Assessment and Plan - Plan Assessment: Acute renal failure Diabetes mellitus type 2insulin-dependent with hyperglycemia Intractable nausea/vomiting Plan: Acute renal failure Likely prerenal, continue IV fluids, obtain renal ultrasound and nephrology consult. Diabetes mellitus type 2insulin-dependent with hyperglycemia Glucose markedly elevated, not currently acidotic small serum ketones and 1+ urine ketones noted. Continue insulin drip until blood sugar is better controlled, can likely transition off later this evening. A1c ordered. Patient reports being compliant with his home regimen. Intractable nausea/vomiting N.p.o., IVF. CT negative for acute findings. Advance diet as tolerated. DVT PPX: Heparin subcu Code status: Full Discharge Plan: Home Plan to discharge in: 48 Hours - Advance Directives Does patient have a Living Will: No Does patient have a Durable POA for Healthcare: No - Code Status/Comfort Care Code Status Assessed: Yes (Full code) Critical Care: No Time Spent Managing Pts Care (In Minutes): 55
[2022-11-15] MEDS ORDERED: D50W 25 GM/50 ML SYRINGE IV PRN (22:38)
[2022-11-15] MEDS ORDERED: INSULIN -REGULAR HUMAN 100 UNIT in NA CHLORIDE 0.9% 100 ML IV SCH (22:38)
[2022-11-15] MEDS ORDERED: GLUCAGON 1 MG/VIAL IM PRN (22:38)
[2022-11-15] MEDS ORDERED: ACETAMINOPHEN 500 MG TAB PO PRN (22:38)
[2022-11-15] MEDS ORDERED: ONDANSETRON 4 MG/2 ML VIAL IV PRN (22:38)
[2022-11-15] MEDS ORDERED: PROMETHAZINE INJ 25 MG/ML AMP IV PRN (22:38)
[2022-11-15] MEDS ORDERED: D10W 125 ML IV PRN (22:59)
[2022-11-15] MEDS ORDERED: NA CHLORIDE 0.9% 1,000 ML ONE (23:16)
[2022-11-15] MEDS: HEPARIN 5000 UNIT/ML 1 ML VIAL SQ SCH (23:36)
[2022-11-15] MEDS: NA CHLORIDE 0.9% 1,000 ML IV SCH (23:37)
[2022-11-16 00:49] LABS: Potassium 3.7 mEq/L (3.5-5.1)
[2022-11-16] MEDS ORDERED: D50W 25 GM/50 ML SYRINGE IV PRN (01:00)
[2022-11-16] MEDS: INSULIN 70/30 100 UNITS/ML SQ SCH ×3 (03:03→16:54)
[2022-11-16] MEDS: NA CHLORIDE 0.9% 1,000 ML IV SCH (05:01)
[2022-11-16 05:18] LABS: Absolute Lymphocytes (CBC) 1.2 K/uL (0.7-4.9); Hematocrit 34.5 % (39.6-49.0); Lymphocytes % 12.6 % (15.3-44.8); MCV 88.8 fL (80-100); MPV 10.5 fL (7.6-11.3); RBC Red Blood Cell Count 3.88 M/uL (4.33-5.43)
[2022-11-16 05:39] LABS: Potassium 4.7 mEq/L (3.5-5.1)
[2022-11-16 05:42] LABS: Magnesium 2.4 mg/dL (1.6-2.4); Phosphorus 2.7 mg/dL (2.5-4.9); Thyroid Stimulating Hormone 1.35 uIU/mL (0.358-3.740)
[2022-11-16 06:11] LABS: Urine Bacteria None Seen /HPF (<20); Urine Bilirubin NEGATIVE (Negative); Urine Blood 1+ (Negative); Urine Clarity Clear (Clear); Urine Color Light-Yellow (Yellow); Urine Glucose 4+ (Over) (Negative); Urine Mucus Slight /HPF (None Seen); Urine Protein 2+ (Negative); Urine RBC <5 /HPF (None Seen); Urine Urobilinogen Normal (Normal); Urine pH 5.5 (5.0-7.0)
[2022-11-16] MEDS ORDERED: INSULIN -REGULAR HUMAN 50 UNIT/0.5 ML ML SQ SCH (07:30)
--- NOTE | 2022-11-16 07:30 | RAD REPORT ---
EXAM DESCRIPTION: US - Renal Ultrasound-Complete - 11/15/2022 11:58 pm CLINICAL HISTORY: ARF COMPARISON: Abdomen Pelvis Wo Contrast dated 11/15/2022 TECHNIQUE: Sonographic grayscale and color flow images of the kidneys and bladder were obtained. FINDINGS: Both kidneys are normal in size, shape and echotexture. Bilateral renal cortical hyperechogenicity. The right kidney measures 10.6 cm in length. No hydronephrosis, focal mass or perinephric fluid. The left kidney measures 10.7 cm in length. No hydronephrosis, focal mass or perinephric fluid. No echogenic calculi. The urinary bladder is incompletely distended without gross abnormality seen. IMPRESSION: Bilateral renal cortical hyperechogenicity, suggesting medical renal disease. No other a cute findings.
[2022-11-16 08:27] VITALS: O2SAT 96
[2022-11-16] MEDS: HEPARIN 5000 UNIT/ML 1 ML VIAL SQ SCH ×2 (08:42→20:50)
[2022-11-16] MEDS ORDERED: NA CHLORIDE 0.9% 1,000 ML IV SCH (10:49)
--- NOTE | 2022-11-16 10:57 | P.CNS ---
Date of Consult: 11/16/22 Reason for Consult: JONAS Requesting Physician: Arie Linda Chief Complaint: JONAS, hyperglycemia History of Present Illness: 47-year-old male with history of insulin-dependent diabetes for 10-15 years without mention of complication presented to the emergency department nausea, vomiting, weakness, hyperglycemia. 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 His labs were notable on admission for acute kidney injury, hyperglycemia. Pt is feeling better now, he denies abd pain or N/V. 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 - Social History Smoking Status: Current some day smoker Alcohol use: No CD- Drugs: No Caffeine use: Yes Place of Residence: Home Review of Systems General: Weakness Eyes: Unremarkable ENT: Unremarkable Respiratory: Unremarkable Cardiovascular: Unremarkable Gastrointestinal: Unremarkable Genitourinary: Unremarkable Musculoskeletal: Unremarkable Integumentary: Unremarkable Neurological: Unremarkable Physical Examination Temp Pulse Resp BP Pulse Ox 97.3 F 71 17 144/75 H 99 11/16/22 00:00 11/16/22 06:00 11/16/22 04:00 11/16/22 06:00 11/16/22 06:00 General: Alert, In no apparent distress, Oriented x3 HEENT: Atraumatic, Normocephalic Neck: Supple Respiratory: Clear to auscultation bilaterally, Normal air movement Cardiovascular: No edema, Regular rate/rhythm, Normal S1 S2 Gastrointestinal: Soft and benign, Non-distended, Other (Midline surgical scar) Musculoskeletal: No swelling, No tenderness Integumentary: No rashes, No tenderness/swelling Neurological: Normal speech, Normal tone, Sensation intact, Normal affect Laboratory Data (last 24 hrs) 11/15/22 19:00: Sodium 123 L, Potassium 4.6, BUN 46 H, Creatinine 3.06 H, Glucose 770 H*, Total Bilirubin 0.8, AST 19, ALT 23, Alkaline Phosphatase 106 11/15/22 19:00: WBC 7.30, Hgb 13.0 L, Hct 38.6 L, Plt Count 158 Conclusions/Impression: A/P) 1. Stage II JONAS on possible underlying CKD NOS as historic labs have shown Cr level > ULN and renal u/s showed kidneys with some increased echogenicity in the setting of DM for > 10 years. 2. JONAS 2nd to pre-renal azotemia, vol depletion -resolving with IVF hydration, cont IVF for another 12-24h 3. Hypovolemic hyponatremia with initial Na corrected for glucose > 130, but ok to switch to hypotonic fluids for on going maintenance for 12-24h as corrected Na level now 141 4. Type II DM with hyperglycemia, possible mild DKA on admission -management and adjustment of Insulin regimen by primary team 5. UA reviewed on admission, other than glucosuria, mostly bland. Will check spot urine study as OP. Lio Reddy MD, CINTHYA
[2022-11-16] MEDS: INSULIN -REGULAR HUMAN 50 UNIT/0.5 ML ML SQ SCH ×3 (11:30→20:50)
[2022-11-16] MEDS: NACHLORIDE 0.45% 1,000 ML IV SCH (11:59)
--- NOTE | 2022-11-16 12:22 | P.PN ---
Subjective Date of Service: 11/16/22 Chief Complaint: JONAS, hyperglycemia No acute events since admission. He reports improvement in his generalized weakness. He states that his nausea and vomiting have also improved. He denies any chest pain, palpitations, or shortness of breath. Review of Systems 10-point ROS is otherwise unremarkable General: Weakness (generalized) Physical Examination - Vital Signs Temperature: 99.2 F Blood Pressure: 134/76 Pulse: 79 Respirations: 17 Pulse Ox (%): 98 - Physical Exam General: Alert, In no apparent distress, Oriented x3 HEENT: Atraumatic, Mucous membr. moist/pink, Sclerae nonicteric Neck: JVD not distended Respiratory: Clear to auscultation bilaterally, Normal air movement Cardiovascular: No edema, Regular rate/rhythm, Normal S1 S2, No gallops, No rubs, No murmurs Gastrointestinal: Normal bowel sounds, Soft and benign, Non-distended, No tenderness, No rebound, No guarding Musculoskeletal: No clubbing Integumentary: No rashes Neurological: Normal speech, Normal affect - Studies Laboratory Data (last 24 hrs) 11/15/22 19:00: Sodium 123 L, Potassium 4.6, BUN 46 H, Creatinine 3.06 H, Glucose 770 H*, Total Bilirubin 0.8, AST 19, ALT 23, Alkaline Phosphatase 106 11/15/22 19:00: WBC 7.30, Hgb 13.0 L, Hct 38.6 L, Plt Count 158 Assessment And Plan - Plan # Acute Kidney Injury on suspected Chronic Kidney Disease Stage III - likely Pre-Renal - Nephrology consulted and spoke with Dr. Reddy - recommendations appreciated - Creatinine = 3.06 -> 2.13 -> 1.94 (creatinine in February 2021 ~1.6) - Urinalysis = 4+ glucosuria, trace ketones, 2+ protein - Renal ultrasound = "bilateral renal cortical hyperechogenicity, suggesting medical renal disease. No other acute findings." - IV fluids per Nephrology - Monitor creatinine and urine output - Renally dose medications # Hyperglycemia in Type II Diabetes Mellitus - Hgb A1c = 9.9 % - Glucose improved on insulin drip - Plan to transition off of insulin drip to NPH 70/30 insulin - Extensive counseling provided - He was advised on the importance of continued outpatient PCP follow-up - He was advised to schedule annual dilated eye exams and urine microalbumin screen, as well as monthly foot exams at home - Food Service Associate consulted for assistance with diabetic diet education # Suspect Undiagnosed Hypertension - Blood pressure is fluctuating, but was as high as 179/87 - Chest x-ray = "no acute intrathoracic process suspected." - Initially planned to start low-dose amlodipine, but spoke with Dr. Reddy and he advised to hold off on treatment at this time # Hyponatremia suspect secondary to Hyperglycemia - Glucose on presentation was 123, but when corrected for the initial glucose of 770, the corrected sodium is between to 134-139. Jacob Tan M.D.
[2022-11-16] MEDS ORDERED: AMLODIPINE 2.5 MG TAB PO SCH (13:00)
--- NOTE | 2022-11-16 16:29 | EKG ---
Test Date: 2022-11-15 Test Time: 19:08:11 Foundry Technician: OVI MEASUREMENT RESULTS: Intervals: Rate: 64 [place]: 140 QRSD: 100 QT: 390 QTc: 402 [place]: P: 59 [place]: 140 QRS: 49 T: 67 INTERPRETIVE STATEMENTS: Normal sinus rhythm Normal ECG Compared to ECG 03/22/2021 22:07:30 No significant changes Electronically Signed On 11-16-22 16:27:31 CDT by Reese Morales
[2022-11-17] MEDS: NACHLORIDE 0.45% 1,000 ML IV SCH (00:16)
[2022-11-17 05:02] LABS: Absolute Lymphocytes (CBC) 1.8 K/uL (0.7-4.9); Hematocrit 34.8 % (39.6-49.0); Lymphocytes % 27.1 % (15.3-44.8); MCV 89.6 fL (80-100); MPV 10.6 fL (7.6-11.3); RBC Red Blood Cell Count 3.88 M/uL (4.33-5.43)
[2022-11-17 05:17] LABS: Magnesium 2.1 mg/dL (1.6-2.4); Phosphorus 1.8 mg/dL (2.5-4.9); Potassium 5.2 mEq/L (3.5-5.1)
[2022-11-17 06:34] VITALS: BMI 20.6
[2022-11-17] MEDS: INSULIN -REGULAR HUMAN 50 UNIT/0.5 ML ML SQ SCH ×2 (08:12→11:52)
[2022-11-17] MEDS: INSULIN 70/30 100 UNITS/ML SQ SCH (08:16)
[2022-11-17] MEDS: HEPARIN 5000 UNIT/ML 1 ML VIAL SQ SCH (08:19)
[2022-11-17] MEDS ORDERED: ALPRAZOLAM 0.25 MG TABLET PO ONE (08:42)
[2022-11-17] MEDS ORDERED: SODIUM PHOSPHATE 10 MM in NA CHLORIDE 0.9% 250 ML IV ONE (10:00)
[2022-11-17 10:12] VITALS: TEMP 97.2
[2022-11-17] MEDS ORDERED: NICOTINE 14 MG/PAT TD SCH (10:51)
[2022-11-17 13:53] VITALS: BP 155/90
--- NOTE | 2022-11-17 14:49 | P.DS ---
Admission Date: 11/15/22 Discharge Date: 11/17/22 Disposition: ROUTINE DISCHARGE Reason for Admission: JONAS, hyperglycemia Consultations: 1. Nephrology Hospital Course: DIAGNOSES: # KDIGO Stage II Acute Kidney Injury on suspected Chronic Kidney Disease Stage III - likely Pre-Renal # Hyperglycemia in Type II Diabetes Mellitus complicated by Diabetic Neuropathy # Nausea/Vomiting suspect due to Diabetic Gastroparesis # Hyponatremia suspect secondary to Hyperglycemia HOSPITAL COURSE: Mr. Gualberto Burgos is a 47 year old male with a past medical history significant for type II diabetes mellitus who was admitted to the [facility] on 11/15/2022 for nausea, vomiting, weakness, and hyperglycemia. He was admitted to the Medicine service. Upon further evaluation, he was found to have a glucose of 770 and a creatinine of 3.06. He was treated with IV fluids and an insulin drip. Over the course of his hospitalization, his glucose levels and creatinine improved significantly. He stated that he felt significantly better and would like to be discharged today to attend his grandson's birthday republican tomorrow. He was counseled extensively on the importance of medication compliance. He was advised to take insulin Novolin 70/30, 15 units SQ BID. He was educated on how to administer his insulin as well as how to measure his blood glucose. He demonstrated the ability to perform these tasks. He was advised to check his blood glucose levels four times per day and to maintain a journal. He will establish care with a PCP soon for further medication adjustments. I spoke with Dr. Copeland, who has agreed to see him in clinic and assist with arranging a PCP follow-up. On 11/17/2022, he was seen on rounds and deemed medically stable for discharge. He was discharged with instructions to schedule follow-up appointments with his PCP and with Nephrology (Dr. Copeland). He was provided a prescription for insulin Novolin 70/30. He and his family members were given the opportunity to ask questions and reported no further questions. Furthermore, all questions were answered to the best of my ability. A copy of this discharge summary will be sent to the above providers to facilitate continuity of care. Today, I personally spent 35 minutes on his case, of which greater than 50% of the time was spent in patient education, counseling, and coordination of care as described above. - Physical Exam General: Alert, In no apparent distress, Oriented x3 HEENT: Atraumatic, Mucous membr. moist/pink, Sclerae nonicteric Neck: JVD not distended Respiratory: Clear to auscultation bilaterally, Normal air movement Cardiovascular: No edema, Regular rate/rhythm, No murmurs Gastrointestinal: Normal bowel sounds, Soft, Non-distended, No tenderness Musculoskeletal: No clubbing Integumentary: No rashes Neurological: Normal speech, Normal affect Vital Signs/Physical Exam: Temp Pulse Resp BP Pulse Ox 97.2 F 56 16 155/90 H 97 11/17/22 08:00 11/17/22 10:50 11/17/22 04:00 11/17/22 10:50 11/17/22 10:50 Laboratory Data at Discharge: WBC 6.70 thou/uL (4.3-10.9) 11/17/22 04:36 Hgb 11.9 g/dL (13.6-17.9) L 11/17/22 04:36 Hct 34.8 % (39.6-49.0) L 11/17/22 04:36 Plt Count 143 thou/uL (152-406) L 11/17/22 04:36 Sodium 136 mEq/L (136-145) 11/17/22 04:36 Potassium 4.5 mEq/L (3.5-5.1) D 11/17/22 07:26 BUN 19 mg/dL (7-18) H 11/17/22 04:36 Creatinine 1.27 mg/dL (0.70-1.30) 11/17/22 04:36 Glucose 281 mg/dL (74-106) H 11/17/22 04:36 Phosphorus 1.8 mg/dL (2.5-4.9) L 11/17/22 04:36 Magnesium 2.1 mg/dL (1.6-2.4) 11/17/22 04:36 Total Bilirubin 0.8 mg/dL (0.2-1.0) 11/15/22 19:00 AST 19 U/L (15-37) 11/15/22 19:00 ALT 23 U/L (16-61) 11/15/22 19:00 Alkaline Phosphatase 106 U/L (45-117) 11/15/22 19:00 Triglycerides 153 mg/dL (<150) H 11/16/22 05:01 Cholesterol 185 mg/dL (<200) 11/16/22 05:01 HDL Cholesterol 35 mg/dL (40-60) L 11/16/22 05:01 Cholesterol/HDL Ratio 5.29 11/16/22 05:01 Home Medications: Insulin 70/30 NPH/Reg Human [Novolin 70/30*] 15 unit SQ BID #10 ml 11/17/22 New Medications: Insulin 70/30 NPH/Reg Human [Novolin 70/30*] 15 unit SQ BID #10 ml Physician Discharge Instructions: 1. Please call and schedule a follow-up appointment with your PCP in 3-5 days - As we discussed, your blood work shows a mild anemia - please discuss having a full anemia workup (including colonoscopy) with your PCP - As we discussed, please check your blood sugar level four times per day (once before each meal, and once before bedtime) - Please make sure to schedule yearly dilated eye exams and urine microalbumin screens - Please make sure to check your feet at least once per month for ulcers - Please make sure to monitor your sugar and carb intake in your diet - Please consider getting a gastric (stomach) emptying study to evaluate for gastroparesis 2. Please call and schedule a follow-up appointment with Nephrology (Dr. Copeland) in 3-5 days If you have any questions regarding your hospital stay, please call [phone] Diet: ADA Activity: Ad elo Followup: Haroon Copeland DO [ACTIVE - CAN ADMIT] - Time spent managing pt's care (in minutes): 35
[2022-11-17] MEDS ORDERED: INSULIN 70/30 100 UNITS/ML SQ SCH (18:00)
--- NOTE | 2022-11-17 21:40 | P.PN ---
Date of Service: 11/17/22 Vital Signs Temp Pulse Resp BP Pulse Ox 97.2 F 56 16 155/90 H 97 11/17/22 08:00 11/17/22 10:50 11/17/22 04:00 11/17/22 10:50 11/17/22 10:50 Assessment/ Plan: Nephrology No dyspnea No chest pain Anxiety +BM +UO No acute events overnight Vitals, medications, blood work and imaging reviewed in the chart. NAD. NCAT. MMM. Neck supple. Normal respiratory effort. RRR. Abd ND. No C/C. LE Edema none. No rash. AAO. Normal speech. CKD II with Proteinuria -No NSAIDs HTN with CKD, variable -Monitor BP DM II with Hyperglycemia & CKD -RISS Anemia in chronic illness -Monitor H&H Case reviewed with Dr. Tan
== END 2022-11-17 15:35 | disposition home or self-care (01) | DRG 74 ==
LOC: ER 18:02 → ERHOLD 20:14 → 3RD-ICU 22:04
PROVIDERS: ADMIT Internal Medicine; ATTEND Internal Medicine
DX: E11.43 Type 2 diabetes mellitus with diabetic autonomic (poly)neuropathy (principal); E87.1 Hypo-osmolality and hyponatremia; N17.9 Acute kidney failure, unspecified; K31.84 Gastroparesis; E11.65 Type 2 diabetes mellitus with hyperglycemia; E11.22 Type 2 diabetes mellitus with diabetic chronic kidney disease; E11.40 Type 2 diabetes mellitus with diabetic neuropathy, unspecified; D63.1 Anemia in chronic kidney disease; N18.30 Chronic kidney disease, stage 3 unspecified; E86.1 Hypovolemia; F17.210 Nicotine dependence, cigarettes, uncomplicated; Z79.4 Long term (current) use of insulin; Z90.49 Acquired absence of other specified parts of digestive tract
CPT/HCPCS: 36415; 36600; 71045; 74176; 76770; 80048; 80053; 80061; 81001; 82010; 82550; 82805; 82947; 83036; 83605; 83735; 84100; 84132; 84439; 84443; 85025; 93005; 96361; 96374; 96375; 99285; J1200; J1644; J1815; J2405; J2550; J2765; J7030; J7050; J7120

== ENCOUNTER 2023-10-26 07:36 | Observation (INO) | payer SELFPAY ==
--- OUTSIDE RECORDS SUMMARY | 2023-10-26 07:41 | XMS REPORT | Continuity of Care Document ---
Author Name Unknown Address [address] [facility] [address] [place] [address] [facility] Address [address] [facility] [address] [place] [address] Care Team Providers Care Powertrain Engineer Name Role Phone PCP, PATIENT DOES NOT HAVE A Primary Care Physic katrina Unavailable RAHSAD SALAZAR Attending Clinician Unavailable Rashad Zamora Attending Clinician [phone] RASHAD SALAZAR Admitting Clinician Unavailable Allergies, Adverse Reactions, Alerts Allergy Name Allergy Type Status Severity Reaction(s) Onset Date Inactive Date Treating Clinician Comments Source NO KNOWN ALLERGIE S Drug Class Active [facility] Social History Social Habit Start Date Stop Date Quantity Comments Source Sexual orientation U [facility] Sex Assigned At 1975 00:00:00 1975 00:00:00 [facility] Smoking Status Start Date Stop Date Source Tobacco smoking consumption unknown [facility] Medications Ordered Medication Name Filled Medication Name Start Date Stop Date Current Medication? Ordering Clinician Indication Dosage Frequency Signature (SIG) Comments Components Source Novolin 70/30 U-100 Insulin 100 unit/mL subcutaneou s suspension 10-23 00:00: 00 Yes unit/mL (70-30) Jett F Isaac lisinopril 40 mg tablet 2023-0 10-23 00:00: 00 Yes 1mg Jett F Isaac lisinopril 40 mg tablet 2023-0 - 00:00: 00 Yes 1mg Jett F Isaac TAKE 1 TABLET DAILY. 07-22 00:00: 00 Yes 40 Jett Gray ibuprofen (IBU) tablet 600 mg 2022-05 17:00: 00 05-13 17:09 :00 No 600mg 600 mg, Oral, ONCE, 1 dose, On Sat05/13/23 at 1100, [facility] HYDROcodone -acetaminop hen (NORCO 5) 5-325 mg tablet 1 tablet 2022-05 17:00: 00 05-13 17:09 :00 No 1{tbl} 1 tablet, Oral, ONCE, 1 dose, On Sat05/13/23 at 1100, [facility] ibuprofen 600 mg tablet 2022-05 00:00: 00 Yes [id number] 600mg Take 1 tablet by mouth every 6 (six) hours as needed for Pain (scale 1-3). [facility] traMADoL 50 mg tablet 2022-05 00:00: 00 05-13 00:00 :00 No [id number] 50mg Take 1 tablet by mouth every 6 (six) hours as needed for Pain (scale 4-6) for up to 7 days. Indication s: acute pain [facility] INJECT 20 UNITS BID 2022-05 00:00: 00 09-05 00:00 :00 No [id number] Jett Gray TAKE 1 TABLET DAILY. 2022-05 00:00: 00 09-05 00:00 :00 No 40 Jett Gray TAKE 1 TABLET TWICE DAILY. 2022-05 00:00: 00 09-05 00:00 :00 No 1000 Jett Gray TAKE 1 TABLET DAILY. 2022-05 00:00: 00 09-05 00:00 :00 No 20 Jett Gray TAKE 1 TABLET DAILY. 2022-05 00:00: 00 09-05 00:00 :00 No 20 Jett Gray TAKE 1 TABLET TWICE A DAY NEEDED 2022-05 00:00: 00 09-05 00:00 :00 No 500 Jett Gray Novolin 70/30 U-100 Insulin 100 unit/mL subcutaneou s suspension 11-17 00:00: 00 Yes unit/mL (70-30) Jett Gray glipizide 10 mg tablet 11-30 00:00: 00 Yes 1mg Jett Gray metformin 1,000 mg tablet 11-30 00:00: 00 Yes 1mg Jett Gray lovastatin 10 mg tablet 11-29 00:00: 00 Yes 1mg Jett Gray lisinopril 10 mg tablet 11-29 00:00: 00 Yes 1mg Jett Gray Lantus 100 unit/mL subcutaneou s solution 2014-05 00:00: 00 Yes 12unit/ mL Jett Gray metformin 1,000 mg tablet 2014-05 00:00: 00 Yes 1mg Jett Gray glimepiride 4 mg tablet 2014-05 00:00: 00 Yes 1mg Jett Gray Immunizations Ordered Immunization Name Filled Immunization Name Date Status Comments Source TDAP Unknown Completed [facility] Vital Signs Vital Name Observation Time Observation Value Comments S ource Systolic blood pressure 2023-05-13 16:56:00 130 mm[Hg] [facility] Diastolic blood pressure 2023-05-13 16:56:00 88 mm[Hg] [facility] Heart rate 2023-05-13 16:56:00 99 /min [facility] Body temperature 2023-05-13 16:56:00 36.61 Lorenza [facility] Respiratory rate 2023-05-13 16:56:00 18 /min [facility] Body height 2023-05-13 16:56:00 182.9 cm [facility] Body weight 2023-05-13 16:56:00 84.823 kg [facility] BMI 2023-05-13 16:56:00 25.36 kg/m2 [facility] Oxygen saturation in Arterial blood by Pulse oximetry 2023-05-13 16:56:00 100 /min [facility] Body Temperature 2023-10-24 11:13:00 98.40 degrees Jett F Isaac Heart Rate 2023-10-24 11:13:00 64.00 /min Sofya en F Isaac Respiratory Rate 2023-10-24 11:13:00 17.00 /min Jett F Isaac BP Systolic 2023-10-24 11:13:00 119 mm[Hg] Step hen F Isaac BP Diastolic 2023-10-24 11:13:00 79 mm[Hg] Cristhian phen F Isaac Weight Measured 2023-10-24 11:13:00 171.20 pounds Jett F Isaac Height Measured 2023-10-24 11:13:00 72.00 inches Jett F Isaac Weight Measured 2023-07-22 16:17:00 176.80 pounds Jett F Isaac Height Measured 2023-07-22 16:17:00 72.00 inches Jett F Isaac Body Temperature 2023-07-22 16:17:00 98.30 degrees Jett F Isaac Heart Rate 2023-07-22 16:17:00 60.00 /min Sofya en F Isaac Respiratory Rate 2023-07-22 16:17:00 16.00 /min Jett F Isaac BP Systolic 2023-07-22 16:17:00 163 mm[Hg] Step hen F Isaac BP Diastolic 2023-07-22 16:17:00 98 mm[Hg] Cristhian phen F Isaac BP Systolic 2023-04-05 13:37:00 138 mm[Hg] Step hen F Isaac BP Diastolic 2023-04-05 13:37:00 88 mm[Hg] Cristhian phen F Isaac Weight Measured 2023-04-05 13:37:00 181.80 pounds Jett F Isaac Height Measured 2023-04-05 13:37:00 72.00 inches Jett F Isaac Body Temperature 2023-04-05 13:37:00 98.40 degrees Jett F Isaac Heart Rate 2023-04-05 13:37:00 56.00 /min Sofya en F Isaac Respiratory Rate 2023-04-05 13:37:00 16.00 /min Jett F Isaac BP Systolic 2023-04-05 13:35:00 138 mm[Hg] Step hen F Isaac BP Diastolic 2023-04-05 13:35:00 88 mm[Hg] Cristhian phen F Isaac Weight Measured 2023-04-05 13:35:00 181.80 pounds Jett F Isaac Height Measured 2023-04-05 13:35:00 72.00 inches Jett F Isaac Body Temperature 2023-04-05 13:35:00 98.40 degrees Jett F Isaac Heart Rate 2023-04-05 13:35:00 56.00 /min Sofya en F Isaac Respiratory Rate 2023-04-05 13:35:00 16.00 /min Jett F Isaac BP Systolic 2023-03-22 13:23:00 161 mm[Hg] Step hen F Isaac BP Diastolic 2023-03-22 13:23:00 95 mm[Hg] Cristhian phen F Isaac Weight Measured 2023-03-22 13:23:00 181.60 pounds Jett F Isaac Height Measured 2023-03-22 13:23:00 72.00 inches Jett F Isaac Body Temperature 2023-03-22 13:23:00 98.40 degrees Jett F Isaac Heart Rate 2023-03-22 13:23:00 70.00 /min Sofya en F Isaac Respiratory Rate 2023-03-22 13:23:00 Jett F Isaac BP Systolic 2016-11-29 10:10:00 134 mm[Hg] Step hen F Isaac BP Diastolic 2016-11-29 10:10:00 86 mm[Hg] Cristhian phen F Isaac Weight Measured 2016-11-29 10:10:00 156.40 pounds Jett F Isaac Height Measured 2016-11-29 10:10:00 72.00 inches Jett F Isaac Body Temperature 2016-11-29 10:10:00 98.10 degrees Jett F Isaac Heart Rate 2016-11-29 10:10:00 61.00 /min Sofya en F Isaac Respiratory Rate 2016-11-29 10:10:00 18.00 /min Jett F Isaac BP Systolic 2015-05-18 09:03:00 134 mm[Hg] Step hen F Isaac BP Diastolic 2015-05-18 09:03:00 84 mm[Hg] Cristhian phen F Isaac Weight Measured 2015-05-18 09:03:00 152.20 pounds Jett F Isaac Height Measured 2015-05-18 09:03:00 72.00 inches Jett F Isaac Body Temperature 2015-05-18 09:03:00 97.80 degrees Jett F Isaac Heart Rate 2015-05-18 09:03:00 82.00 /min Sofya en F Isaac Respiratory Rate 2015-05-18 09:03:00 17.00 /min Jett F Isaac BP Systolic 2015-05-12 10:49:00 115 mm[Hg] Step hen F Isaac BP Diastolic 2015-05-12 10:49:00 78 mm[Hg] Cristhian phen F Isaac Weight Measured 2015-05-12 10:49:00 148.00 pounds Jett F Isaac Height Measured 2015-05-12 10:49:00 72.00 inches Jett F Isaac Body Temperature 2015-05-12 10:49:00 97.70 degrees Jett F Isaac Heart Rate 2015-05-12 10:49:00 75.00 /min Sofya en F Isaac Respiratory Rate 2015-05-12 10:49:00 18.00 /min Jett F Isaac BP Systolic 2015-05-12 10:36:00 115 mm[Hg] Step hen F Isaac BP Diastolic 2015-05-12 10:36:00 78 mm[Hg] Cristhian phen F Isaac Weight Measured 2015-05-12 10:36:00 148.00 pounds Jett F Isaac Height Measured 2015-05-12 10:36:00 72.00 inches Jett F Isaac Body Temperature 2015-05-12 10:36:00 97.70 degrees Jett F Isaac Heart Rate 2015-05-12 10:36:00 75.00 /min Sofya en F Isaac Respiratory Rate 2015-05-12 10:36:00 18.00 /min Jett F Isaac Procedures Procedure Date / Time Performed Performing Clinician Source NM APPLICATION SHORT ARM SPLINT FOREARM-HAND STATIC 2023-05-13 18:22:11 Rashad Salazar [facility] XR ELBOW <3 VW LEFT 2023-05-13 17:29:47 Bety Salzaar [facility] XR FOREARM 2 VW LEFT 2023-05-13 17:29:47 Sejal Salazar [facility] XR HAND <3 VW LEFT 2023-05-13 17:29:47 Rashad Salazar [facility] XR HUMERUS 2 VW LEFT 2023-05-13 17:29:47 Sejal Salazar [facility] NOTICE OF PRIVACY PRACTICES 2023-05-13 16:48:34 Doctor Unassigned, [place] [facility] CONSENT/REFUSAL FOR DIAGNOSIS AND TREATMENT 2023-05-13 16:47:55 Doctor Unassigned, [place] [facility] Encounters Start Date/Time End Date/Time Encounter Type Admission Type Attending [facility] Facility Care Department Encounter ID Source 2023-10-24 11:10:34 2023-10-24 11:10:34 Outpatient SFA [id number] Jett Gray 2023-10-24 00:00:00 2023-10-24 00:00:00 Outpatient Visit [id number] Jett Gray 2023-07-22 16:05:51 2023-07-22 16:05:51 Outpatient SFA [id number] Jett Gray 2023-05-13 10:58:00 2023-05-13 12:39:00 Emergency X RASHAD SALAZAR [facility] ERT [id number] [facility] 2023-05-13 10:58:00 2023-05-13 12:39:00 Emergency Rashad Salazar [facility] [id number] [facility] 2023-04-05 13:23:33 2023-04-05 13:23:33 Outpatient [facility] [id number] Jett Gray Results Test Description Test Time Test Comments Results Result Co mments Source Jett GrayLIPID [id number] 00:00:00* Test Item Value Reference Range Interpretation Comme nts CHOLESTEROL (test code = 2210) 180 MG/DL TRIGLYCERIDES (test code = 2232) 145 MG/DL HDL CHOLESTEROL (test code = 2220) 40 MG/DL CALC LDL CHOL (test code = 2237) 114 MG/DL RISK RATIO LDL/HDL (test cod e = 2238) 2.85 RATIO Jett GrayHEMOGLOBIN [id number] 00:00:00* Test Item Value Reference Range Interpretation Comme nts HEMOGLOBIN A1c (test code = 10472) 10.8 % Jett GrayHEMOGLOBIN [id number] 03:12:04* Test Item Value Reference Range Interpretation [facility]me [facility] HEMOGLOBIN A1c (test code = 87312) 9.3 % 4.2-5.6 H [employer] GUIDELINES FOR HGB A1C: PREDIABETES/INCREASED RISK . . . . . . . 5.7-6.4% DIAGNOSIS OF DIABETES . . . . . . . . . >=6.5% WITH CONFIRMATION OR APPROPRIATE SYMPTOMS NOTE: ASSAY MAY BE AFFECTED BY HEMOGLOBINOPATHIES (SICKLE CELL ANEMIA, S-C DISEASE, OTHERS) OR ARTIFICIALLY LOWERED BY DECREASED RED CELL SURVIVAL (HEMOLYTIC ANEMIAS, BLOOD LOSS, ETC.). CONSIDER ALTERNATE TESTING OR LABORATORY CONSULTATION. UNLESS OTHERWISE INDICATED, ALL TESTING PERFORMED AT [facility] [address] [place] [address] TAPE FOLDING MACHINE OPERATOR: TROY JACOME M.D. [place] NUMBER [id number] [facility] [place]. [id number] HEMOGLOBIN [id number] 00:00:00* Test Item Value Reference Range Interpretation Comme [facility] HEMOGLOBIN A1c (test code = 94254) 9.3 % Jett GrayCOMPREHENSIVE METABOLIC [id number] 03:51:09* Test Item Value Reference Range Interpretation Comme nts GLUCOSE (test code = 2217) 219 MG/DL 70-99 H BUN (test code = 2208) 13 MG/DL 6-20 CREATININE (test code = 2214) 1.28 MG/DL 0.80-1.40 eGFR (2020 CKD-EPI) (test co de = 30235) 70 ML/MIN/1.73 >60 CALC BUN/CREAT (test code = 2235) 10 RATIO 6-28 SODIUM (test code = 2231) 137 MEQ/L 133-146 POTASSIUM (test code = 2228) 5.2 MEQ/L 3.5-5.4 CHLORIDE (test code = 2215) 100 MEQ/L 95-107 CARBON DIOXIDE (test code = 2206) 29 MEQ/L 19-31 CALCIUM (test code = 2209) 9.4 MG/DL 8.5-10.5 PROTEIN, TOTAL (test code = 2229) 6.3 G/DL 6.1-8.3 ALBUMIN (test code = 2201) 4.1 G/DL 3.5-5.2 CALC GLOBULIN (test code = 2240) 2.2 G/DL 1.9-3.7 CALC A/G RATIO (test code = 2234) 1.9 RATIO 1.0-2.6 BILIRUBIN, TOTAL (test code = 2207) 0.4 MG/DL <=1.2 ALKALINE PHOSPHATASE (test code = 2204) 82 U/L 40-118 AST (test code = 2218) 18 U/L 9-50 ALT (test code = 2219) 13 U/L 5-50 LIPID [id number] 03:51:09* Test Item Value Reference Range Interpretation Comme nts CHOLESTEROL (test code = 2210) 189 MG/DL <200 TRIGLYCERIDES (test code = 2232) 173 MG/DL <150 H HDL CHOLESTEROL (test code = 2220) 35 MG/DL >39 L CALC LDL CHOL (test code = 2237) 125 MG/DL <100 H NOTE: CALCULATED LDL IS BASED ON ABNER-DIAZ METHOD WHICHINCLUDES ADJUSTABLE TRIGLYCERIDE:VLDL CHOLESTEROL RATIO.THIS FACTOR VARIES BY MEASURED TRIGLYCERIDE AND NON-HDLCHOLESTEROL CONCENTRATIONS WITH INCREASED CALCULATED LDL SEENIN HIGHER TRIGLYCERIDE OR LOWER NON-HDL SPECIMENS. FOR MOREINFORMATION, SEE CLIENT ANNOUNCEMENT AT [email or web address] RISK RATIO LDL/HDL (test code = 2238) 3.57 RATIO <3.55 H UNLESS OTHERW ISE INDICATED, ALL TESTING PERFORMED AT [facility] [address] [place] [address] TAPE FOLDING MACHINE OPERATOR: TROY JACOME M.D. [place] NUMBER [id number] [facility] [place]. [id number] COMPREHENSIVE METABOLIC [id number] 00:00:00* Test Item Value Reference Range Interpretation Comme nts GLUCOSE (test code = 2217) 219 MG/DL BUN (test code = 2208) 13 MG/DL CREATININE (test code = 2214) 1.28 MG/DL eGFR (2020 CKD-EPI) (test co de = 84109) 70 ML/MIN/1.73 CALC BUN/CREAT (test code = 2235) 10 RATIO SODIUM (test code = 2231) 137 MEQ/L POTASSIUM (test code = 2228) 5.2 MEQ/L CHLORIDE (test code = 2215) 100 MEQ/L CARBON DIOXIDE (test code = 2206) 29 MEQ/L CALCIUM (test code = 2209) 9.4 MG/DL PROTEIN, TOTAL (test code = 2229) 6.3 G/DL ALBUMIN (test code = 2201) 4.1 G/DL CALC GLOBULIN (test code = 2240) 2.2 G/DL CALC A/G RATIO (test code = 2234) 1.9 RATIO BILIRUBIN, TOTAL (test code = 2207) 0.4 MG/DL ALKALINE PHOSPHATASE (test code = 2204) 82 U/L AST (test code = 2218) 18 U/L ALT (test code = 2219) 13 U/L Jett GrayLIPID [id number] 00:00:00* Test Item Value Reference Range Interpretation Comme nts CHOLESTEROL (test code = 2210) 189 MG/DL TRIGLYCERIDES (test code = 2232) 173 MG/DL HDL CHOLESTEROL (test code = 2220) 35 MG/DL CALC LDL CHOL (test code = 2237) 125 MG/DL RISK RATIO LDL/HDL (test cod e = 223) 3.57 RATIO Jett GrayHEMOGLOBIN [id number] 00:00:00* Test Item Value Reference Range Interpretation Comme [facility] HEMOGLOBIN A1c (test code = 77534) 10.7 % Jett GrayCOMPREHENSIVE METABOLIC [id number] 00:00:00* Test Item Value Reference Range Interpretation Comme nts GLUCOSE (test code = 2217) 335 MG/DL BUN (test code = 2208) 12 MG/DL CREATININE (test code = 2214) 0.81 MG/DL eGFR AMER. (test cod e = 97729) 129 ML/MIN/1.73 eGFR NON- AMER. (test code = 50663) 111 ML/MIN/1.73 CALC BUN/CREAT (test code = 2235) 15 RATIO SODIUM (test code = 2231) 137 MEQ/L POTASSIUM (test code = 2228) 5.0 MEQ/L CHLORIDE (test code = 2215) 98 MEQ/L CARBON DIOXIDE (test code = 2206) 28 MEQ/L CALCIUM (test code = 2209) 9.6 MG/DL PROTEIN, TOTAL (test code = 2229) 6.5 G/DL ALBUMIN (test code = 2201) 4.3 G/DL CALC GLOBULIN (test code = 2240) 2.2 G/DL CALC A/G RATIO (test code = 2234) 2.0 RATIO BILIRUBIN, TOTAL (test code = 2207) 0.4 MG/DL ALKALINE PHOSPHATASE (test code = 2204) 80 U/L AST (test code = 2218) 20 U/L ALT (test code = 2219) 21 U/L Jett GrayLIPID [id number] 00:00:00* Test Item Value Reference Range Interpretation Comme nts CHOLESTEROL (test code = 2210) 164 MG/DL TRIGLYCERIDES (test code = 2232) 83 MG/DL HDL CHOLESTEROL (test code = 2220) 67 MG/DL CALC LDL CHOL (test code = 2237) 80 MG/DL RISK RATIO LDL/HDL (test cod e = 2238) 1.20 RATIO Jett GrayGC, AMPLIFIED, [id number] 00:00:00* Test Item Value Reference Range Interpretation Comme nts GONORRHEA, AMPLIFIED (test c ode = 28346) NEGATIVE Jett GrayCHLAMYDIA, AMPLIFIED, [id number] 00:00:00* Test Item Value Reference Range Interpretation Comme nts CHLAMYDIA, AMPLIFIED (test c ode = 19496) NEGATIVE Jett GrayCOMPREHENSIVE METABOLIC [id number] 00:00:00* Test Item Value Reference Range Interpretation Comme nts GLUCOSE (test code = 2217) 237 MG/DL BUN (test code = 2208) 16 MG/DL CREATININE (test code = 2214) 0.91 MG/DL eGFR AMER. (test cod e = 15040) 123 ML/MIN/1.73 eGFR NON- AMER. (test code = 37311) 107 ML/MIN/1.73 CALCULATED BUN/CREAT (test code = 2235) 18 RATIO SODIUM (test code = 2231) 135 MEQ/L POTASSIUM (test code = 2228) 4.6 MEQ/L CHLORIDE (test code = 2215) 96 MEQ/L CARBON DIOXIDE (test code = 2206) 28 MEQ/L CALCIUM (test code = 2209) 9.4 MG/DL PROTEIN, TOTAL (test code = 2229) 6.6 G/DL ALBUMIN (test code = 2201) 3.9 G/DL CALCULATED GLOBULIN (test code = 2240) 2.7 G/DL CALCULATED A/G RATIO (test code = 2234) 1.4 RATIO BILIRUBIN, TOTAL (test code = 2207) 0.5 MG/DL ALKALINE PHOSPHATASE (test code = 2204) 98 U/L SGOT (AST) (test code = 2218) 59 U/L SGPT (ALT) (test code = 2219) 109 U/L Jett GrayLIPID [id number] 00:00:00* Test Item Value Reference Range Interpretation Comme nts CHOLESTEROL (test code = 2210) 204 MG/DL TRIGLYCERIDES (test code = 2232) 167 MG/DL HDL CHOLESTEROL (test code = 2220) 70 MG/DL CALCULATED LDL CHOL (test co de = 2237) 101 MG/DL RISK RATIO LDL/HDL (test cod e = 2238) 1.44 RATIO Jett GrayCBC W/AUTO [id number] 00:00:00* Test Item Value Reference Range Interpretation Comme nts WBC (test code = 1001) 5.4 K/UL RBC (test code = 1002) 5.13 M/UL HEMOGLOBIN (test code = 1003) 15.2 G/DL HEMATOCRIT (test code = 1004) 46.0 % MCV (test code = 1005) 89.7 fL MCH (test code = 1006) 29.6 PG MCHC (test code = 1007) 33.0 G/DL RDW (test code = 1038) 13.7 % NEUTROPHILS (test code = 1008) 56 % LYMPHOCYTES (test code = 1010) 34 % MONOCYTES (test code = 1011) 9 % EOSINOPHILS (test code = 1012) 1 % BASOPHILS (test code = 1013) 1 % PLATELET COUNT (test code = 1015) 231 K/UL Jett GrayHEMOGLOBIN [id number] 00:00:00* Test Item Value Reference Range Interpretation Comme [facility] HEMOGLOBIN A1c (test code = 98172) 13.6 % Jett GrayTHYROID II PROFILE (T3U, T4, T7, TSH)2015-05-13 00:00:00* Test Item Value Reference Range Interpretation Comme nts T3 UPTAKE (test code = 2817) 29.3 % T4 (THYROXINE) (test code = 2819) 9.3 UG/DL CALCULATED T7 (FTI) (test co de = 2820) 2.72 TSH (test code = 2821) 1.5 UIU/ML Jett GrayHIV AB/AG COMBO RFLX [id number] 00:00:00* Test Item Value Reference Range Interpretation Comme nts HIV AB/AG COMBO RFLX CONF (t est code = 3514) NON-REACTIVE Jett [id number] 00:00:00* Test Item Value Reference Range Interpretation Comme nts RPR RESULT (test code = 3501) NON-REACTIVE RPR TITER (test code = 3500) NOT INDIC. TITER Jett GrayACUTE HEPATITIS [id number] 00:00:00* Test Item Value Reference Range Interpretation Comme nts HEPATITIS A IgM (test code = 72641) NON-REACTIVE HEPATITIS B CORE IgM (test c ode = 4644) NON-REACTIVE HEPATITIS B SURF AG (test co de = 2739) NON-REACTIVE HEPATITIS C ANTIBODY (test c ode = 4675) NON-REACTIVE INTERPRETATION HEPATITIS A: (test code = 2552) (NOTE) INTERPRETATION HEPATITIS B: (test code = 05891) (NOTE) INTERPRETATION HEPATITIS C: (test code = 48545) (NOTE) Jett Gray Notes Date/Time Note Provider Source 2023-10-24 00:00:00 [id number] T00:00:00+ + +| Plan Activity | Plan Date |+ =========+ +| CBC | 2015-07-07 || CMP | || A1C | || TSH | || Lipids | || Follow up in one year for follow up | || Results will be called to You and addressed | |+ ---------+ +| STD Panel | 2015-07-07 || UA - GC | || Avoid Sexual Contact for 21 days | || Use of Condoms or Abstinence for protection against HIV and STDs | || Recommend follow up in clinic in 14 days for assessment for regimen | |+ ---------+ +| Hepatitis Panel | 2015-07-07 || Referral for Abdominal Ultrasound | || Cessation of Smoking | || Cessation of Drinking | || Cessation of Liver intoxicating drugs | || Follow up in one week for assessment of reports and managment | || Avoid NSAIDs | |+ ---------+ +| Restart med | 2015-07-07 || Increase Exercise to 3-5 times a week for at least 45 minutes | || High Fiber Low Calorie Diet | || Reduce Carbohydrates | || Increase Vegetables | |+ ---------+ +| Offered Prescriptive assistance with Smoking cessation | 2016-11-29 || Counseled on smoking Cessation | || Offered Behavioral health for Assistance with smoking cessation | |+ ---------+ +| normal weight and height | 2023-03-22 |+ ---------+ +| smoking cessation | 2023-03-22 || | || discussed tobacco cessation | || consider setting a quit date | || consider medications to help with cravings if needed | || continue to monitor | |+ ---------+ +| Well controlled | 2023-03-22 || rx lisinopril 40 mg po QD | || f/u in 3 months | || Begin checking BP at home and keep log to bring to next clinic visit. | || DASH diet, Sodium reduction <2.4 g/day | || Weight reduction, Exercise 150 mins/wk | || Limit alcohol and caffeine consumption, Smoking cessation | |+ ---------+ +| UA neg for UTI | 2023-03-22 || rx robaxin 500 mg BID prn | || Heat to area x 20 mins 2 or 3 times daily followed by mild stretching | || exercises, Limit bedrest, stay active for reduced pain and better functional | || outcomes | || f/u if no improvement | |+ ---------+ +| RTO for A1C, CMP, Lipid- | 2023-04-05 || Patient with financial issue unable to have stable housing and healthy foods | || due to limited accommodations. | || Continue novolin 70/30 20 unit bid. Just bought a new vial from [employer] | || Continue low fat, low salt, low carbohydrate, high fiber diet- education given. | || Exercise at least 30 minute daily | || Drink at least 6-8 glasses of water daily. Stop drinking at least 2 hours | || before bed. | |+ ---------+ +| Continue healthy diet and exercise | 2023-10-24 |+ ---------+ +| Advised pt to quit smoking. | 2023-10-24 || Discussed resources available when pt is ready to quit smoking. | || Recommend setting quit date. | |+ ---------+ +[id number] of TreatmentLNCARE PLANTXTSFA|[id number] for patient [id number] Section NarrativeNARRATIVEFormatted C-CDA narrative textSFAStangie Hess [facility]2024-05-31T00:00:00 Jett Jaky [facility]"
[2023-10-26] MEDS ORDERED: ONDANSETRON 4 MG/2 ML VIAL ONE (08:03)
[2023-10-26] MEDS ORDERED: NA CHLORIDE 0.9% 1,000 ML ONE (08:03)
[2023-10-26 08:13] LABS: Absolute Eosinophils 0.1 K/uL (0-0.5); Absolute Lymphocytes (CBC) 1.3 K/uL (0.7-4.9); Absolute Monocytes 0.6 K/uL (0.1-1.3); Absolute Neutrophil 7.3 K/uL (1.8-8.0); Basophils % 0.4 % (0-1.3); Eosinophils % 0.9 % (0-4.4); Hematocrit 39.9 % (39.6-49.0); Hemoglobin 13.5 g/dL (13.6-17.9); Lymphocytes % 13.9 % (15.3-44.8); MCH 30.6 pg (27.0-35.0); MCHC 33.8 g/dL (32.0-36.0); MCV 90.5 fL (80-100); Monocytes % 6.1 % (3.3-12.3); Neutrophils % 78.7 % (41.7-73.7); Platelets 255 thou/uL (152-406)
[2023-10-26 08:22] LABS: PT Prothrombin Time 10.4 SECONDS (9.5-12.5); Protime INR 0.94
[2023-10-26] MEDS ORDERED: ALBUTEROL 2.5 MG/3 ML NEB SOL ONE ×2 (08:30→08:47)
--- NOTE | 2023-10-26 08:31 | RAD REPORT ---
EXAM DESCRIPTION: RAD - Chest Single View - 10/26/2023 8:25 am CLINICAL HISTORY: ABDOMINAL DISTENTION COMPARISON: Chest Single View dated 11/15/2022; Chest Pa And Lat (2 Views) dated 03/22/2021; CHEST SI NGLE VIEW dated 10/27/2010 FINDINGS: Lines: None. Lungs: No evidence of edema or pneumonia. Calcified right upper lobe nodules. Pleural: No significant pleural effusions or pneumothorax. Cardiac: The heart size is within normal limits. Mediastinum: Within normal limits. Bones: No acute fractures. Other: None IMPRESSION: No acute cardiopulmonary disease.
[2023-10-26 08:36] LABS: ALT/SGPT 19 U/L (16-61); AST/SGOT 17 U/L (15-37); Albumin 3.4 g/dL (3.4-5.0); Albumin/Globulin Ratio 0.9 (1.1-1.8); Alkaline Phosphatase 84 U/L (45-117); Anion Gap 7.8 mEq/L (5.0-15.0); BUN Blood Urea Nitrogen 31 mg/dL (7-18); Bicarbonate 21 mEq/L (21-32); Bilirubin Direct < 0.2 mg/dL (0-0.2); Bilirubin Indirect, Calculated 0.3 mg/dL (0.2-0.8); Bilirubin Total 0.5 mg/dL (0.2-1.0); Globulin 3.7 g/dL (2.3-3.5); Glomerular Filtration Rate 50 ml/min (=/>90); Glucose Level 135 mg/dL (74-106); Lipase 230 U/L (13-75); Magnesium 2.1 mg/dL (1.6-2.4); NT PRO-BNP 95 pg/mL (<125); Potassium 5.8 mEq/L (3.5-5.1); Protein, Total 7.1 g/dL (6.4-8.2); Sodium Level 137 mEq/L (136-145); Troponin High Sensitivity 36.7 pg/mL (<58.9)
[2023-10-26] MEDS ORDERED: SOD POLYSTYREN SUL 15 GM/60 ML UCUP ONE (08:47)
[2023-10-26] MEDS ORDERED: CALCIUM GLUCONATE 1 GM IVPB 1 GM/50 ML BAG IV ONE (08:48)
--- NOTE | 2023-10-26 08:57 | RAD REPORT ---
EXAM DESCRIPTION: CTStone Protocol - 10/26/2023 8:43 am CLINICAL HISTORY: FLANK PAIN COMPARISON: Abdomen Pelvis Wo Contrast dated 11/15/2022 TECHNIQUE: CT of the abdomen and pelvis was performed without contrast. All CT scans are performed using dose optimization technique as appropriate and may include automated exposure control or mA/KV adjustment according to patient size. FINDINGS: Lower chest: No acute abnormality. Mild circumferential thickened distal esophagus. Liver: Low-density lesion in the posterior right hepatic lobe is unchanged. Biliary: No biliary ductal dilatation. Stomach: No significant focal abnormality. Duodenum: No significant focal abnormality. Pancreas: No significant abnormality. Spleen: No significant abnormality. Adrenal: No suspicious lesions. Kidney/ureter: No hydronephrosis. No renal calculi. Retroperitoneum: No retroperitoneal adenopathy. Vascular: No aneurysm. Atherosclerosis . Bowel: Small bowel fluid noted.. Peritoneum: No ascites or free air. Small fat containing inguinal hernia. Bladder: Circumferential thickening of the bladder which is nonspecific. Reproductive: No adnexal masses. Bones: No acute fracture. Disc height loss at L5-S1. Other: n/a IMPRESSION: No acute intra-abdominal or pelvic finding. Fluid-filled small bowel and proximal colon could reflect a gastroenteritis or malabsorption process.
--- NOTE | 2023-10-26 09:29 | ER ---
Nurse's Notes [facility] Name: Gualberto Burgos Age: 48 yrs Sex: Male : 1975 Arrival Date: 10/26/2023 Time: 07:36 Bed 7 Private MD: Diagnosis: Other viral enteritis;Acute kidney failure, unspecified-on chronic;Dehydration;Hyperkalemia;Vomiting;Diarrhea, unspecified;Essential (primary) hypertension Presentation: 10/25 08:05 Chief complaint: Patient states: N/V/D that started yesterday, saw PCP on and ph was told that potassium and A1C was high and that he should come to ED, hx of DM, states that he did take insulin this morning, 20 units Novolin 70/30. Coronavirus screen: Vaccine status: Patient reports being unvaccinated. Ebola Screen: No symptoms or risks identified at this time. Initial Sepsis Screen: Does the patient meet any 2 criteria? No. Patient's initial sepsis screen is negative. Does the patient have a suspected source of infection? No. Patient's initial sepsis screen is negative. Risk Assessment: Do you want to hurt yourself or someone else? Patient reports no desire to harm self or others. Onset of symptoms was October 26, 2023. 08:05 Method Of Arrival: Ambulatory ph 08:05 Acuity: MARTINA 3 ph Triage Assessment: 08:08 General: Appears in no apparent distress. uncomfortable, slender, well groomed, ph Behavior is calm, cooperative, appropriate for age. Pain: Complains of pain in abdomen. Neuro: Level of Consciousness is awake, alert, obeys commands, Oriented to person, place, time, situation. Cardiovascular: Capillary refill < 3 seconds in bilateral fingers Patient's skin is warm and dry. Respiratory: Airway is patent Respiratory effort is even, unlabored, Respiratory pattern is regular, symmetrical. GI: Abdomen is non-distended, Reports lower abdominal pain, upper abdominal pain, diarrhea, nausea, vomiting. Derm: Skin is pink, warm \T\ dry. Historical: - Allergies: 08:06 No Known Allergies; ph - Home Meds: 08:06 Novolin 70/30 InnoLet Insulin 100 unit/mL (70-30) Sub-Q inpn [Active]; Lisinopril Oral ph [Active]; - PMHx: 08:06 diabetes mellitus; Hypertensive disorder; ph - PSHx: 08:06 abdominal sx; ph - Immunization history:: Adult Immunizations unknown. - Infectious Disease History:: Denies. - Social history:: Smoking status: Patient reports the use of cigarette tobacco products, denies chronic smoking, but will smoke occasionally, cigars, Patient uses street drugs, marijuana. - Family history:: not pertinent. Screenin:10 [facility] ED Fall Risk Assessment (Adult) History of falling in the last 3 months, ph including since admission No falls in past 3 months (0 pts) Confusion or Disorientation No (0 pts) Intoxicated or Sedated No (0 pts) Impaired Gait No (0 pts) Mobility Assist Device Used No (0 pt) Altered Elimination No (0 pt) Score/Fall Risk Level 0 - 2 = Low Risk Oriented to surroundings, Maintained a safe environment, Hourly rounding (assess needs \T\ fall precautionary measures) done. Abuse screen: Denies threats or abuse. Denies injuries from another. Nutritional screening: No deficits noted. Tuberculosis screening: No symptoms or risk factors identified. Assessment: 08:36 General: SEE TRIAGE ASSESSMENT. ph Vital Signs: 08:05 BP 145 / 98; Pulse 74; Resp 18; Temp 97.5; Pulse Ox 100% on R/A; Weight 78.02 kg; ph Height 6 ft. 0 in. ; 08:37 BP 133 / 106; Pulse 69; Resp 18; Pulse Ox 100% on Nebulizer Mask; ph 09:51 BP 126 / 98; Pulse 84; Resp 18; Pulse Ox 96% on R/A; ph 08:05 Body Mass Index 23.33 (78.02 kg, 182.88 cm) ph ED Course: 07:42 Patient arrived in ED. ra3 07:43 Francisco Ivan MD is Attending Physician. rossy 07:46 Griselda Ibarra, CHARISMA is Primary Nurse. ph 08:06 Triage completed. ph 08:10 Arm band placed on Patient placed in an exam room, on a stretcher, on pulse oximetry. ph 08:11 Patient has correct armband on for positive identification. Bed in low position. Call ph light in reach. Side rails up X2. 08:27 XRAY Chest (1 view) In Process Unspecified. EDMS 08:27 Basic Metabolic Panel Sent. ph 08:27 CBC with Diff Sent. ph 08:27 LFT's Sent. ph 08:27 Magnesium Sent. ph 08:27 NT PRO-BNP Sent. ph 08:27 Troponin HS Sent. ph 08:28 Lipase Sent. ph 08:28 Initial lab(s) drawn, by me, sent to lab. EKG done, by ED staff, reviewed by Francisco Ivan MD. Inserted saline lock: 22 gauge in right forearm, using aseptic technique. Blood collected. 08:45 CT Stone Protocol In Process Unspecified. EDSD 09:27 Brad Perdomo MD is Hospitalizing Provider. rossy 10:00 No provider procedures requiring assistance completed. Patient admitted, IV remains in ph place. Administered Medications: 08:27 Drug: NS 0.9% IV 1000 ml IV at 1 bolus Per protocol; 1000 mL bolus Route: IV; Rate: 1 ph bolus; Site: right forearm; 10:00 Follow up: Response: No adverse reaction; IV Status: Completed infusion; IV Intake: ph 1000ml 08:30 Drug: Albuterol Inhalation 2.5 mg Inhalation once Route: Inhalation; ph 09:00 Follow up: Response: No adverse reaction ph 08:54 Drug: Albuterol Inhalation 2.5 mg Inhalation once Route: Inhalation; ph 09:30 Follow up: Response: No adverse reaction ph 08:54 Drug: Kayexalate PO 30 grams PO once Route: PO; ph 09:30 Follow up: Response: No adverse reaction ph 08:54 Drug: Calcium Gluconate IVPB 1 grams IVPB once over 10 mins; (mix in NS 100 mL) Route: ph IVPB; Infused Over: 10 mins; Site: right forearm; 09:45 Follow up: Response: No adverse reaction; IV Status: Completed infusion ph Medication: 08:10 VIS not applicable for this client. ph Intake: 10:00 IV: 1000ml; Total: 1000ml. ph Outcome: :28 Decision to Hospitalize by Provider. rossy 11:32 Patient left the ED. em1 11:32 Admitted to Med/surg accompanied by tech, via wheelchair, ph 11:32 Condition: stable 11:32 Instructed on the need for admit, Signatures: Dispatcher [employer] EDSD Francisco Ivan MD MD cha Martinez, Eric em1 Griselda Ibarra RN RN ph Kraus, Kaylen ra3
--- NOTE | 2023-10-26 09:29 | EDPHYS ---
Physician Documentation [facility] Name: Gualberto Burgos Age: 48 yrs Sex: Male : 1975 Arrival Date: 10/26/2023 Time: 07:36 Bed 7 Private MD: CY Physician Francisco Ivan HPI: 10/25 09:21 This 48 yrs old Male presents to ER via Ambulatory with complaints of sent by rossy pcp:abnormal labs, Nausea/Vomiting/Diarrhea. 09:21 The patient presents to the emergency department with nausea, vomiting. Onset: The rossy symptoms/episode began/occurred 3 day(s) ago. Possible causes: unknown, bad food exposure, flare up of bowel problem. The symptoms are aggravated by food , The symptoms are alleviated by nothing. Associated signs and symptoms: Pertinent positives: nausea, vomiting. Severity of symptoms: At their worst the symptoms were moderate in the emergency department the symptoms are unchanged. The patient has experienced similar episodes in the past, a few times. Historical: - Allergies: 08:06 No Known Allergies; ph - Home Meds: 08:06 Novolin 70/30 InnoLet Insulin 100 unit/mL (70-30) Sub-Q inpn [Active]; Lisinopril Oral ph [Active]; - PMHx: 08:06 diabetes mellitus; Hypertensive disorder; ph - PSHx: 08:06 abdominal sx; ph - Immunization history:: Adult Immunizations unknown. - Infectious Disease History:: Denies. - Social history:: Smoking status: Patient reports the use of cigarette tobacco products, denies chronic smoking, but will smoke occasionally, cigars, Patient uses street drugs, marijuana. - Family history:: not pertinent. ROS: 09:21 Constitutional: Negative for fever, chills, and weight loss, Eyes: Negative for injury, rossy pain, redness, and discharge, ENT: Negative for injury, pain, and discharge, Neck: Negative for injury, pain, and swelling, Cardiovascular: Negative for chest pain, palpitations, and edema, Respiratory: Negative for shortness of breath, cough, wheezing, and pleuritic chest pain, Back: Negative for injury and pain, : Negative for injury, bleeding, discharge, and swelling, MS/Extremity: Negative for injury and deformity, Skin: Negative for injury, rash, and discoloration, Neuro: Negative for headache, weakness, numbness, tingling, and seizure, Psych: Negative for depression, anxiety, suicide ideation, homicidal ideation, and hallucinations, Allergy/Immunology: Negative for hives, rash, and allergies, Endocrine: Negative for neck swelling, polydipsia, polyuria, polyphagia, and marked weight changes, Hematologic/Lymphatic: Negative for swollen nodes, abnormal bleeding, and unusual bruising, 09:21 Abdomen/GI: Positive for abdominal pain, nausea and vomiting, diarrhea, abdominal cramps, abdominal distension, Exam: 09:21 Constitutional: This is a well developed, well nourished patient who is awake, alert, rossy and in no acute distress. Head/Face: Normocephalic, atraumatic. Eyes: Pupils equal round and reactive to light, extra-ocular motions intact. Lids and lashes normal. Conjunctiva and sclera are non-icteric and not injected. Cornea within normal limits. Periorbital areas with no swelling, redness, or edema. ENT: Nares patent. No nasal discharge, no septal abnormalities noted. Tympanic membranes are normal and external auditory canals are clear. Oropharynx with no redness, swelling, or masses, exudates, or evidence of obstruction, uvula midline. Mucous membranes moist. Neck: Trachea midline, no thyromegaly or masses palpated, and no cervical lymphadenopathy. Supple, full range of motion without nuchal rigidity, or vertebral point tenderness. No Meningismus. Chest/axilla: Normal chest wall appearance and motion. Nontender with no deformity. No lesions are appreciated. Cardiovascular: Regular rate and rhythm with a normal S1 and S2. No gallops, murmurs, or rubs. Normal PMI, no JVD. No pulse deficits. Respiratory: Lungs have equal breath sounds bilaterally, clear to auscultation and percussion. No rales, rhonchi or wheezes noted. No increased work of breathing, no retractions or nasal flaring. Abdomen/GI: Soft, non-tender, with normal bowel sounds. No distension or tympany. No guarding or rebound. No evidence of tenderness throughout. Back: No spinal tenderness. No costovertebral tenderness. Full range of motion. Male : Normal genitalia with no discharge or lesions. Skin: Warm, dry with normal turgor. Normal color with no rashes, no lesions, and no evidence of cellulitis. MS/ Extremity: Pulses equal, no cyanosis. Neurovascular intact. Full, normal range of motion. Neuro: Awake and alert, GCS 15, oriented to person, place, time, and situation. Cranial nerves II-XII grossly intact. Motor strength 5/5 in all extremities. Sensory grossly intact. Cerebellar exam normal. Normal gait. Psych: Awake, alert, with orientation to person, place and time. Behavior, mood, and affect are within normal limits. 09:21 ECG was reviewed by the Attending Physician. Vital Signs: 08:05 BP 145 / 98; Pulse 74; Resp 18; Temp 97.5; Pulse Ox 100% on R/A; Weight 78.02 kg; ph Height 6 ft. 0 in. ; 08:37 BP 133 / 106; Pulse 69; Resp 18; Pulse Ox 100% on Nebulizer Mask; ph 09:51 BP 126 / 98; Pulse 84; Resp 18; Pulse Ox 96% on R/A; ph 08:05 Body Mass Index 23.33 (78.02 kg, 182.88 cm) ph MDM: 07:43 Patient medically screened. [facility] 09:24 Differential diagnosis: Nonspecific abd pain, gastritis, pancreatitis, diverticulitis, rossy viral gastroenteritis. Data reviewed: vital signs, nurses notes, lab test result(s), EKG, radiologic studies, CT scan, plain films. Consideration of Admission/Observation Patient was admitted/placed on observation. Escalation of care including admission/observation considered. I considered the following discharge prescriptions or medication management in the emergency department Medications were administered in the Emergency Department. See MAR. Independent interpretation of the following test(s) in the Emergency Department EKG: See my EKG interpretation above. Test considered but Not performed: Ultrasound no renal usg. Care significantly affected by the following chronic conditions: Diabetes, Hypertension, Chronic Kidney Disease. 10/25 07:45 Order name: Basic Metabolic Panel; Complete Time: : rossy 10/25 07:45 Order name: CBC with Diff; Complete Time: rossy 10/25 07:45 Order name: LFT's; Complete Time: :19 [facility] 10/25 07:45 Order name: Magnesium; Complete Time: : [facility] 10/25 07:45 Order name: NT PRO-BNP; Complete Time: : [facility] 10/25 07:45 Order name: PT-INR; Complete Time: :19 [facility] 10/25 07:45 Order name: Troponin HS; Complete Time: 09:19 [facility] 10/25 07:45 Order name: Lipase; Complete Time: 09:19 [facility] 10/25 07:45 Order name: Urinalysis w/ reflexes rossy 10/25 07:45 Order name: Fecal Leukocyte Stain [facility] 10/25 07:45 Order name: Stool Culture [facility] 10/25 10:42 Order name: Basic Metabolic Panel EDMS 10/25 10:42 Order name: Urinalysis w/ reflexes EDMS 10/25 10:42 Order name: Basic Metabolic Panel EDMS 10/25 10:42 Order name: Basic Metabolic Panel EDMS 10/25 10:42 Order name: Basic Metabolic Panel EDMS 10/25 10:42 Order name: CBC with Automated Diff EDMS 10/25 10:42 Order name: CBC with Automated Diff EDMS 10/25 10:42 Order name: CBC with Automated Diff EDMS 10/25 10:42 Order name: Magnesium EDMS 10/25 10:42 Order name: Magnesium EDMS 10/25 10:42 Order name: Magnesium EDMS 10/25 10:42 Order name: Phosphorus EDMS 10/25 10:42 Order name: Phosphorus EDMS 10/25 10:42 Order name: Phosphorus EDMS 10/25 07:45 Order name: XRAY Chest (1 view); Complete Time: 09:19 [facility] 10/25 08:29 Order name: CT Stone Protocol; Complete Time: 09:19 [facility] 10/25 07:45 Order name: Cardiac monitoring; Complete Time: 08:27 [facility] 10/25 07:45 Order name: EKG - Nurse/Tech; Complete Time: 08:27 [facility] 10/25 07:45 Order name: IV Saline Lock; Complete Time: 08:27 [facility] 10/25 07:45 Order name: Labs collected and sent; Complete Time: 08:27 [facility] 10/25 07:45 Order name: O2 Per Protocol; Complete Time: 08:27 [facility] 10/25 07:45 Order name: O2 Sat Monitoring; Complete Time: 08:27 [facility] EC:21 Rate is 136 beats/min. Rhythm is regular. QRS [place] is Normal. [place] interval is normal. rossy QRS interval is normal. QT interval is normal. No Q waves. T waves are Peaked in leads III, aVF, V1, V2, V3, V4, V5, V6. No ST changes noted. Clinical impression: Abnormal EKG without significant change and No evidence of ischemia. Interpreted by me. Reviewed by me. Administered Medications: 08:27 Drug: NS 0.9% IV 1000 ml IV at 1 bolus Per protocol; 1000 mL bolus Route: IV; Rate: 1 ph bolus; Site: right forearm; 10:00 Follow up: Response: No adverse reaction; IV Status: Completed infusion; IV Intake: ph 1000ml 08:30 Drug: Albuterol Inhalation 2.5 mg Inhalation once Route: Inhalation; ph 09:00 Follow up: Response: No adverse reaction ph 08:54 Drug: Albuterol Inhalation 2.5 mg Inhalation once Route: Inhalation; ph 09:30 Follow up: Response: No adverse reaction ph 08:54 Drug: Kayexalate PO 30 grams PO once Route: PO; ph 09:30 Follow up: Response: No adverse reaction ph 08:54 Drug: Calcium Gluconate IVPB 1 grams IVPB once over 10 mins; (mix in NS 100 mL) Route: ph IVPB; Infused Over: 10 mins; Site: right forearm; 09:45 Follow up: Response: No adverse reaction; IV Status: Completed infusion ph Disposition Summary: 10/26/23 09:28 Hospitalization Ordered Notes: Hospitalization Status: Inpatient Admission rossy Provider: Brad Perdomo cha Location: Telemetry/MedSurg (Inpatient) rossy Condition: Fair rossy Problem: new rossy Symptoms: have improved rossy Bed/Room Type: Standard [facility] Room Assignment: 222(10/26/23 10:48) eb Diagnosis - Other viral enteritis rossy - Acute kidney failure, unspecified - on chronic rossy - Dehydration rossy - Hyperkalemia rossy - Vomiting rossy - Diarrhea, unspecified rossy - Essential (primary) hypertension rossy Forms: - Medication Reconciliation Form rossy - SBAR form rossy - Leadership Thank You Letter rossy Signatures: Dispatcher [employer] Francisco Yip MD MD cha Hall, Patricia, RN RN Mindy Sanchez Corrections: (The following items were deleted from the chart) 07:46 07:46 BASIC METABOLIC PANEL+C.LAB.BRZ ordered. EDMS EDMS 07:46 07:46 CBC+H.LAB.BRZ ordered. EDMS EDMS 07:46 07:46 HEPATIC FUNCTION+C.LAB.BRZ ordered. EDMS EDMS 07:46 07:46 MAGNESIUM+C.LAB.BRZ ordered. EDMS EDMS 07:46 07:46 PROBNP+C.LAB.BRZ ordered. EDMS EDMS 07:46 07:46 PROTIME (+INR)+COAG.LAB.BRZ ordered. EDMS EDMS 07:46 07:46 Troponin High Sensitivity+C.LAB.BRZ ordered. EDMS EDMS 07:46 07:46 LIPASE+C.LAB.BRZ ordered. EDMS EDMS 07:46 07:46 Urinalysis+U.LAB.BRZ ordered. EDMS EDMS 07:46 07:46 Fecal Leukocyte Stain+BA.LAB.BRZ ordered. EDMS EDMS 07:46 07:46 Stool Culture+BA.LAB.BRZ ordered. EDMS EDMS 07:46 07:46 Chest Single View+RAD.RAD.BRZ ordered. EDMS EDMS 07:46 07:46 Abdomen Pelvis W Con+CT.RAD.BRZ ordered. EDMS EDMS 10:48 09:28 rossy eb
--- NOTE | 2023-10-26 10:01 | P.HP ---
Certification for Inpatient Patient admitted to: Observation With expected LOS: <2 Midnights Patient will require the following post-hospital care: None Practitioner: I am a practitioner with admitting privileges, knowledge of patient current condition, hospital course, and medical plan of care. Services: Services provided to patient in accordance with Admission requirements found in Title 42 Section 412.3 of the Code of Federal Regulations Patient History Date of Service: 10/26/23 Reason for admission: Enteritis, hyperkalemia History of Present Illness: Gualberto Burgos 48-year-old male with past medical history of diabetes mellitus, hypertension, chronic renal failure, and abdominal surgery who presents to the ED with chief complaint of nausea vomiting diarrhea for 3 days with abnormal values from PCP. Upon arrival blood potassium is 5.8 and was treated with calcium gluconate and Kayexalate in the ED. Stool cultures ordered in the ED. He reports having an upper respiratory infection recently but resolved without seeing the doctor. He currently takes lisinopril and NPH. He reports working outside for his job and feels he is dehydrated. He smokes one cigar and multiple wanted joints daily. Initial vitals BP 145 / 98; Pulse 74; Resp 18; Temp 97.5; Pulse Ox 100% on R/A. Laboratory evaluation significant for potassium 5.8, BUN/creatinine 31/1.69, GFR 50, serum glucose 135. Chest x-ray report "No acute cardiopulmonary disease." Abdominal CT report "No acute intra-abdominal or pelvic finding. 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, lives at home with family - Social History Smoking Status: Current every day smoker (one cigar daily and multiple marijuana joints daily) Alcohol use: No CD- Drugs: No Caffeine use: Yes Review of Systems Gastrointestinal: Nausea, Vomiting, Abdominal Pain, Diarrhea Physical Examination - Physical Exam General: Alert, In no apparent distress, Oriented x3, Other (aggitated) HEENT: Atraumatic, Normocephalic, PERRLA Neck: Supple, 2+ carotid pulse no bruit, JVD not distended Respiratory: Clear to auscultation bilaterally, Normal air movement Cardiovascular: Normal pulses, Regular rate/rhythm, Normal S1 S2 Capillary refill: <2 Seconds Gastrointestinal: Normal bowel sounds, Soft and benign Musculoskeletal: No erythema Integumentary: No rashes Neurological: Normal speech, Normal tone - Studies Laboratory Data (last 24 hrs) 10/26/23 10/26/23 10/26/23 08:00 08:00 08:00 WBC 9.20 Hgb 13.5 L Hct 39.9 Plt Count 255 PT 10.4 INR 0.94 Sodium 137 Potassium 5.8 H BUN 31 H Creatinine 1.69 H Glucose 135 H Magnesium 2.1 Total Bilirubin 0.5 AST 17 ALT 19 Alkaline Phosphatase 84 Lipase 230 H Assessment and Plan - Plan Assessment and plan Acute gastroenteritis Fluid volume deficit secondary to nausea vomiting diarrhea Hypokalemia Potassium 5.8, recheck this afternoon Calcium gluconate, albuterol, and Kayexalate given in the ED Gentle IV fluid, 1 L Protonix twice daily and Carafate regular diet, see his tolerance and adjust as needed continuous telemetry Acute on chronic renal failure BUN/creatinine 31/1.69 Gentle IV fluids Diabetes mellitus Accu-Chek with sliding scale insulin Serum glucose 135 History of hypertension stop lisinopril hydralazine PRN Substance abuse Cigars and marijuana joints Smoking cessation education provided DVT PPx heparin Full code LOS 24 hour obs- likely discharge in the AM Discharge Plan: Home Plan to discharge in: 24 Hours - Advance Directives Does patient have a Living Will: No Does patient have a Durable POA for Healthcare: No
[2023-10-26] MEDS ORDERED: ACETAMINOPHEN 500 MG TAB PO PRN (10:36)
[2023-10-26] MEDS: PANTOPRAZOLE 40 MG INJ IVP SCH (10:58)
[2023-10-26] MEDS ORDERED: SODIUM CHLORIDE 0.9% 10ML INJ IV PRN (10:58)
[2023-10-26] MEDS ORDERED: HYDRALAZINE HCL 20 MG/ML VIAL IV PRN (11:01)
[2023-10-26] MEDS: INSULIN REGULAR (HUMAN) 100 UNIT/ML SQ SCH (11:30)
[2023-10-26 11:47] VITALS: O2SAT 96
[2023-10-26 12:08] VITALS: BMI 23.6
[2023-10-26 12:43] LABS: Anion Gap 6.9 mEq/L (5.0-15.0); Potassium 4.9 mEq/L (3.5-5.1)
[2023-10-26] MEDS: SUCRALFATE 1 GM TABLET PO SCH (13:30)
[2023-10-26] MEDS: NA CHLORIDE 0.9% 1,000 ML IV SCH (13:30)
[2023-10-26 15:07] LABS: Anion Gap 7.2 mEq/L (5.0-15.0)
[2023-10-26 15:10] LABS: Potassium 6.2 mEq/L (3.5-5.1)
--- NOTE | 2023-10-26 15:36 | P.DS ---
Admission Date: 10/26/23 Discharge Date: 10/26/23 Disposition: AMA-LEFT AGAINST MEDICAL ADVIC Reason for Admission: Enteritis, hyperkalemia Brief History of Present Illness: Diagnosis Acute gastroenteritis Fluid volume deficit secondary to nausea vomiting diarrhea Hypokalemia Acute on chronic renal failure Diabetes mellitus History of hypertension Substance abuse Gualberto Burgos 48-year-old male with past medical history of diabetes mellitus, hypertension, chronic renal failure, and abdominal surgery who presents to the ED with chief complaint of nausea vomiting diarrhea for 3 days with abnormal values from PCP. Upon arrival blood potassium is 5.8 and was treated with calcium gluconate and Kayexalate in the ED. Stool cultures ordered in the ED. He reports having an upper respiratory infection recently but resolved without seeing the doctor. He currently takes lisinopril and NPH. He reports working outside for his job and feels he is dehydrated. He smokes one cigar and multiple wanted joints daily. Initial vitals BP 145 / 98; Pulse 74; Resp 18; Temp 97.5; Pulse Ox 100% on R/A. Laboratory evaluation significant for potassium 5.8, BUN/creatinine 31/1.69, GFR 50, serum glucose 135. Chest x-ray report "No acute cardiopulmonary disease." Abdominal CT report "No acute intra-abdominal or pelvic finding. Fluid-filled small bowel and proximal colon could reflect a gastroenteritis or malabsorption process." Gualberto will be admitted to hospitalist service for treatment of hyperkalemia and dehydration Hospital Course: Gualberto Burgos has decided to leave against medication advice and treatment. We have discussed the danger and limitations that will likely occur from leaving the hospital without treatment, specifically , stroke, and becoming unstable hemodynamically. Vital Signs/Physical Exam: Temp Pulse Resp BP Pulse Ox 97.8 F 79 16 144/82 H 98 10/26/23 12:00 10/26/23 12:00 10/26/23 12:00 10/26/23 12:00 10/26/23 12:00 Laboratory Data at Discharge: WBC 9.20 thou/uL (4.3-10.9) 10/26/23 08:00 Hgb 13.5 g/dL (13.6-17.9) L 10/26/23 08:00 Hct 39.9 % (39.6-49.0) 10/26/23 08:00 Plt Count 255 thou/uL (152-406) 10/26/23 08:00 PT 10.4 SECONDS (9.5-12.5) 10/26/23 08:00 INR 0.94 10/26/23 08:00 Sodium 134 mEq/L (136-145) L D 10/26/23 14:20 Potassium 6.2 mEq/L (3.5-5.1) H* D 10/26/23 14:20 BUN 28 mg/dL (7-18) H 10/26/23 14:20 Creatinine 1.54 mg/dL (0.70-1.30) H 10/26/23 14:20 Glucose 296 mg/dL (74-106) H 10/26/23 14:20 Magnesium 2.1 mg/dL (1.6-2.4) 10/26/23 08:00 Total Bilirubin 0.5 mg/dL (0.2-1.0) 10/26/23 08:00 AST 17 U/L (15-37) 10/26/23 08:00 ALT 19 U/L (16-61) 10/26/23 08:00 Alkaline Phosphatase 84 U/L (45-117) 10/26/23 08:00 Lipase 230 U/L (13-75) H 10/26/23 08:00 Home Medications: Insulin 70/30 NPH/Reg Human [Novolin 70/30*] 15 unit SQ BID #10 ml 11/17/22 Followup: Sarah Correa MD [Primary Care Provider] -
[2023-10-26] MEDS: SODIUM ZIRCONIUM CYCLOSILICATE 10 GM/PKT PO ONE (16:43)
--- NOTE | 2023-10-26 17:00 | CON ---
History Of Present Illness: Patient is seen in room 222 A on second floor. He just got admitted, pr esented with some diarrhea, nausea, vomiting and states that he has been out and has not been eating and drinking well. Had a similar problem last year. Does not know of any significant ongoing kidney problems, but states that he was in kidney failure last year also, possibility of dehydration, volum e depletion last year as well and was discharged after receiving care at the hospital. CT scan of hi s abdomen done that does not show any active acute abdominal process. It is soft on exam as well. O n abdominal exam, his x-ray does not show any evidence of volume overload. He has dry skin. No harvinder a. Lungs are clear. He presented with labs showing potassium elevated at about 5.8. He denies any pain currently. He is alert, awake, able to give answers and respond to questions well. He does not rec all what medication he is on. His list does show lisinopril, and he does know that he is taking a me dication for blood pressure. He has history of diabetes and uses insulin. Has not followed up with primary care physicians until recently, but did go to Dr. Stefanie dominguez just recently and had evaluation done and that was according to him yesterday. His main complaint has been nausea, vomiting for abou t 3 days. His potassium was 5.8 on arrival to the emergency room. His vitals currently are relative ly stable. Physical Examination: Vital Signs: His blood pressure last was 126 and diastolic in the 90 range. Pulse about 80 and regu lar, respirations around 14 and comfortable, O2 sats are 96% to 100% on room air. Lungs: Clear. Abdomen: Overall soft. Extremities: Reveal no edema. Skin: Dry. Mouth is dry. Neuro: He is alert, awake, able to answer questions. He does not seem to have any nausea currently. Imaging: Chest x-ray and CT abdomen report reviewed. Allergies: LISTED NKDA. Medications: Question insulin, question lisinopril. Past Medical History: Significant for hypertension. He does use marijuana. Does not take any drugs . Does not drink alcohol. History of diabetes, history of appendectomy. Family History: Noncontributory. Social History: He is currently homeless, living in motels. He does have a daughter who lives close by. He is , but . Laboratory Data: Reviewed. WBC count 9.2, hemoglobin 13.5, hematocrit 39.9, platelet count of 255. Sodium 137, potassium 5.8, chloride 114, bicarb is 21, BUN 31, creatinine 1.69. Assessment And Plan: The patient with acute kidney injury in the setting of volume depletion. Skin is dry, clear to auscultation bilaterally his lungs. He is otherwise in no acute distress. He is ab le to eat and drink well. His nausea and vomiting seems to have resolved. No further diarrhea curre ntly. The patient is off his lisinopril. Blood pressure seems to be reasonable. Has gotten a dose of Kayexalate and calcium in the emergency room. Currently, agree with IV fluids. He can continue n ormal saline at 100 cc an hour. Check repeat BMP, which has already been ordered. He has already go tten Kayexalate as well. With volume repletion, expect his kidney function to improve. Question res idual renal function. Question if any evidence of damage from diabetes. He is getting also urinalys is that is pending to evaluate for any protein as well in the urine. The patient will benefit from N ephrology followup outpatient for assessment of his residual renal function and management of same. The patient has been advised. /MARIA DEL CARMEN Voice ID: [id number] Report ID: [id number]
[2023-10-26 17:28] LABS: Sqamous Epithelial None Seen /HPF (None Seen); Urine Bacteria None Seen /HPF (<20); Urine Culture Reflex Order NOT NEEDED; Urine RBC <5 /HPF (None Seen); Urine WBC <5 /HPF (<5)
[2023-10-26 17:32] LABS: Specific Gravity 1.017 (1.005-1.030); Urine Bilirubin NEGATIVE (Negative); Urine Blood Trace (Negative); Urine Clarity Clear (Clear); Urine Color Light-Yellow (Yellow); Urine Glucose 4+ (Over) (Negative); Urine Ketones NEGATIVE (Negative); Urine Microscopic Reflex YN NO UMIC; Urine Nitrite NEGATIVE (Negative); Urine Protein 2+ (Negative); Urine Urobilinogen Normal (Normal); Urine pH 5.5 (5.0-7.0)
[2023-10-26 22:52] LABS: Anion Gap 5.8 mEq/L (5.0-15.0); Potassium 4.8 mEq/L (3.5-5.1)
[2023-10-27 03:39] LABS: Absolute Eosinophils 0.1 K/uL (0-0.5); Absolute Lymphocytes (CBC) 1.8 K/uL (0.7-4.9); Absolute Monocytes 0.7 K/uL (0.1-1.3); Absolute Neutrophil 4.5 K/uL (1.8-8.0); Basophils % 0.5 % (0-1.3); Eosinophils % 1.4 % (0-4.4); Hematocrit 38.7 % (39.6-49.0); Hemoglobin 12.7 g/dL (13.6-17.9); Lymphocytes % 25.4 % (15.3-44.8); MCH 30.4 pg (27.0-35.0); MCHC 32.9 g/dL (32.0-36.0); MCV 92.2 fL (80-100); MPV 10.1 fL (7.6-11.3); Monocytes % 9.4 % (3.3-12.3); Neutrophils % 63.3 % (41.7-73.7); Platelets 219 thou/uL (152-406); RBC Red Blood Cell Count 4.19 M/uL (4.33-5.43); Red Cell Distribution Width 13.1 % (12.1-15.2)
[2023-10-27 04:11] LABS: Anion Gap 9.4 mEq/L (5.0-15.0); Magnesium 1.7 mg/dL (1.6-2.4); Phosphorus 2.1 mg/dL (2.5-4.9)
[2023-10-27 04:16] LABS: Potassium 6.4 mEq/L (3.5-5.1)
[2023-10-27 04:35] VITALS: BP 167/101; TEMP 97.9
--- NOTE | 2023-10-28 14:12 | EKG ---
Test Date: 2023-10-26 Test Time: 08:19:46 [employer] Administrator: PH MEASUREMENT RESULTS: Intervals: Rate: 136 VT: QRSD: 90 QT: 344 QTc: 517 [place]: P: 74 VT: QRS: 56 T: 75 INTERPRETIVE STATEMENTS: Undetermined rhythm Septal infarct, age undetermined Abnormal ECG Compared to ECG 11/15/2022 19:08:11 Myocardial infarct finding now present Sinus rhythm no longer present Electronically Signed On 10-28-23 14:06:42 CDT by Reese Morales
== END 2023-10-27 04:50 | disposition left against medical advice (07) ==
LOC: ER 07:36 → ERHOLD 10:36 → 2ND 11:06
PROVIDERS: ADMIT Internal Medicine Sleep Medicine; ATTEND Internal Medicine Sleep Medicine
DX: K52.9 Noninfective gastroenteritis and colitis, unspecified (principal); E86.9 Volume depletion, unspecified; E86.0 Dehydration; E87.6 Hypokalemia; N17.9 Acute kidney failure, unspecified; E11.9 Type 2 diabetes mellitus without complications; I10 Essential (primary) hypertension; F17.210 Nicotine dependence, cigarettes, uncomplicated; F12.90 Cannabis use, unspecified, uncomplicated
CPT/HCPCS: 36415; 71045; 74176; 76377; 80048; 80076; 81003; 82947; 83690; 83735; 83880; 84100; 84132; 84484; 85025; 85610; 93005; 96361; 96365; 99285; G0378; J0612; J2405; J7030; J7613